=== PATIENT | female | born 1990 | race Two or more races ===

== ENCOUNTER → 2016-09-13 | Outpatient (CLI) | payer OTHER ==
[2016-09-13 11:17] LABS: CH 29.7; CHCM 33.1; HCT 38.7 % (34.0-46.0); HDW 2.75; HGB 12.5 gm/dL (11.4-16.0); MCH 29.1 pg (25.0-35.0); MCHC 32.2 g/dL (31.0-37.0); MCV 90.3 fL (80.0-100.0); Mean Platelet Volume 10.1; RBC 4.29 m/uL (3.80-5.40); RDW 14.2 % (11.5-15.5); WBC 7.7 k/uL (3.8-10.6)
== END | disposition home or self-care (01) ==
LOC: LABWHC1 09:43
PROVIDERS: ATTEND Obstetrics & Gynecology
DX: Z34.02 Encounter for supervision of normal first pregnancy, second trimester (principal); Z3A.00 Weeks of gestation of pregnancy not specified
CPT/HCPCS: 36415; 82950; 85027

== ENCOUNTER 2016-09-18 12:32 | Emergency (ER) | payer OTHER ==
[2016-09-18 13:03] VITALS: TEMP 97.8
[2016-09-18 14:08] LABS: Basophils % (A) 0 %; CH 29.7; CHCM 34.3; Eosinophils # (A) 0.1 k/uL (0-0.7); Eosinophils % (A) 1 %; HCT 36.3 % (34.0-46.0); HDW 2.81; HGB 12.4 gm/dL (11.4-16.0); Luc % (Auto) 1; Lymphocytes # (A) 1.3 k/uL (1.0-4.8); Lymphocytes % (A) 15 %; MCH 29.8 pg (25.0-35.0); MCHC 34.3 g/dL (31.0-37.0); MCV 87.1 fL (80.0-100.0); Mean Platelet Volume 9.1; Monocytes # (A) 0.3 k/uL (0-1.0); Monocytes % (A) 4 %; Neutrophils # (A) 6.4 k/uL (1.3-7.7); Neutrophils % (A) 78 %; RBC 4.16 m/uL (3.80-5.40); RDW 13.8 % (11.5-15.5); WBC 8.2 k/uL (3.8-10.6)
[2016-09-18] MEDS ORDERED: SODIUM CHLORIDE 0.9% 1,000 ML IV ONE (14:08)
--- NOTE | 2016-09-18 14:13 | ED ---
General Adult HPI - General Chief complaint: Headache Stated complaint: Headache,Dizzy Time Seen by Provider: 09/18/16 13:10 Source: patient Mode of arrival: ambulatory Limitations: no limitations - History of Present Illness Initial comments: 26-year-old at Ethiopian female presented for evaluation of headache last night and mild ataxia this morning. She states the headache was gradual in onset and only asked did for a couple hours in the evening yesterday. This morning she woke up and she stated that she had difficulty ambulating in a straight line stating that she would swerve left and right while walking. This lasted for a few minutes and since then she has had no return of the symptoms. She denies any change in her vision, return of the headache, change in hearing, focal weakness, and her significant other denies any change in mental status. She states she is [address] Bal for obstetric care. - Related Data Home Medications Medication Instructions Recorded Confirmed Vit No.78/Iron/FA [Pretab 1 tab PO DAILY 09/18/16 09/18/16 29 mg-1 mg Tablet] Previous Rx's Medication Instructions Recorded Nitrofurantoin Monohyd/M-Cryst 100 mg PO Q12HR #20 cap 09/18/16 [Macrobid] Allergies Allergy/AdvReac Type Severity Reaction Status Date / Time No Known Allergies Allergy Verified 09/18/16 13:55 Review of Systems ROS Statement: Those systems with pertinent positive or pertinent negative responses have been documented in the HPI. General: Patient denies fever, chills,nausea, or vomiting. HEENT: No visual changes. No eye pain. No nasal symptoms. No dysphagia.No odynophagia. No ENT pain. Cardiac: No chest pain. No palpitations. Pulmonary; No dyspnea. Denies cough. GI: No abdominal pain. No diarrhea. No constipation. No bowel habit changes. No melena. No hematochezia. See general. : No dysuria.No hematuria. No hesitancy. No urgency. No renal lithiasis history. Musculoskeletal: No musculoskeletal pain. Orthopedic: Denies fracture history. Integumentary: Denies rash. Denies pruritis. Neurologic: Positive headache last night. Ataxia this morning lasting about 2 minutes. Denies any lateralizing weakness. Denies numbness. Denies tingling. No seizure activity. Denies TIA or CVA. Heme/Onc: Denies anemia. Denies cancer. Denies adenopathy. ROS Other: All systems not noted in ROS Statement are negative. Past Medical History Past Medical History: No Reported History History of Any Multi-Drug Resistant Organisms: None Reported Past Surgical History: No Surgical Hx Reported Past Psychological History: No Psychological Hx Reported Past Alcohol Use History: None Reported Past Drug Use History: None Reported General Exam - General Exam Comments Initial Comments: General: The patient is awake and alert, in no distress, and does not appear acutely ill. Eye: Pupils are equal, round and reactive to light, extra-ocular movements are intact; there is normal conjunctiva bilaterally. No signs of icterus. Ears, nose, mouth and throat: There are moist mucous membranes and no oral lesions. Neck: The neck is supple, there is no tenderness or JVD. Cardiovascular: There is a regular rate and rhythm. No murmur, rub or gallop is appreciated. Respiratory: Lungs are clear to auscultation, respirations are non-labored, breath sounds are equal. No wheezes, stridor, rales, or rhonchi. Gastrointestinal: Soft, non-distended, non-tender abdomen without masses or organomegaly noted. There is no rebound or guarding present. No CVA tenderness. Bowel sounds are unremarkable. Back: There is no tenderness to palpation in the midline. There is no obvious deformity. Musculoskeletal: Normal ROM, no tenderness, There is no calf tenderness or swelling. Sensation intact. Pulses equal bilaterally 2+. Neurological: CN II-XII intact, There are no obvious motor or sensory deficits. Coordination appears grossly intact, with normal gait and station. Speech is normal. Negative Romberg. Skin: Skin is warm and dry. Mild rash to back of neck that appears to be contact dermatitis. Psychiatric: Cooperative, appropriate mood & affect, normal judgment. Limitations: no limitations Course Vital Signs 09/18/16 13:00 Temperature 97.8 F Pulse Rate 67 Respiratory 18 Rate Blood Pressure 112/59 O2 Sat by Pulse 100 Oximetry Medical Decision Making - Medical Decision Making 26-year-old -[place] female at 21 weeks presenting for evaluation of headache last night and ataxia this morning which lasted just a couple minutes. Since then her symptoms have completely resolved. The examination revealed cranial nerves II through XII intact, no focal deficits, normal gait and station, and negative Romberg test. We'll obtain labs and provide IV fluids. Discussion on whether or not to obtain a CT of the head was pursued with the patient and her and to share decision-making it was decided that they would not obtain the CT at this time. They were advised that if her symptoms should return, worsen or persist she should return to the ED for further evaluation at which point she would be strongly recommended to obtain the computed tomography scan. Labs revealed no significant abnormalities and the patient was informed of this. Discussion on signs and symptoms for return to the ED was provided and included but was not limited to: Dizziness/lightheadedness, change in vision, intractable headache, intractable nausea vomiting, ataxia, focal weakness, altered mental status. The patient and her acknowledged an understanding of this information and agreed with this plan of care as well as to follow-up with her primary care physician at sometime this week. - Lab Data Result diagrams: 09/18/16 13:45 09/18/16 13:45 Lab Results 09/18/16 09/18/16 09/18/16 Range/Units 13:45 13:45 13:45 WBC 8.2 (3.8-10.6) k/uL RBC 4.16 (3.80-5.40) m/uL Hgb 12.4 (11.4-16.0) gm/dL Hct 36.3 (34.0-46.0) % MCV 87.1 (80.0-100.0) fL MCH 29.8 (25.0-35.0) pg MCHC 34.3 (31.0-37.0) g/dL RDW 13.8 (11.5-15.5) % Plt Count 165 (150-450) k/uL Neutrophils % 78 % Lymphocytes % 15 % Monocytes % 4 % Eosinophils % 1 % Basophils % 0 % Neutrophils # 6.4 (1.3-7.7) k/uL Lymphocytes # 1.3 (1.0-4.8) k/uL Monocytes # 0.3 (0-1.0) k/uL Eosinophils # 0.1 (0-0.7) k/uL Basophils # 0.0 (0-0.2) k/uL Sodium 138 (137-145) mmol/L Potassium 3.8 (3.5-5.1) mmol/L Chloride 108 H (98-107) mmol/L Carbon Dioxide 20 L (22-30) mmol/L Anion Gap 10 mmol/L BUN 7 (7-17) mg/dL Creatinine 0.40 L (0.52-1.04) mg/dL Est GFR (MDRD) Af Amer >60 (>60 ml/min/1.73 sqM) Est GFR (MDRD) Non-Af >60 (>60 ml/min/1.73 sqM) Glucose 99 (74-99) mg/dL Calcium 9.2 (8.4-10.2) mg/dL Urine Color Yellow Urine Appearance Cloudy H (Clear) Urine pH 5.5 (5.0-8.0) Ur Specific [place] 1.019 (1.001-1.035) Urine Protein Trace H (Negative) Urine Glucose (UA) 2+ H (Negative) Urine Ketones Trace H (Negative) Urine Blood Negative (Negative) Urine Nitrate Negative (Negative) Urine Bilirubin Negative (Negative) Urine Urobilinogen <2.0 (<2.0) mg/dL Ur Leukocyte Esterase Negative (Negative) Urine RBC 2 (0-5) /hpf Urine WBC 1 (0-5) /hpf Ur Squamous Epith Cells 3 (0-4) /hpf Urine Bacteria Rare H (None) /hpf Urine Mucus Occasional H (None) /hpf Disposition Clinical Impression: Ataxia, Asymptomatic bacteriuria Disposition: HOME SELF-CARE Condition: Stable Instructions: Acute Headache (ED) Additional Instructions: Please use medication as discussed. Please follow up with family doctor if symptoms have not improved over the next two days. Please return to the emergency room if your symptoms increase or worsen or for any other concerns. Prescriptions: Nitrofurantoin Monohyd/M-Cryst [Macrobid] 100 mg PO Q12HR #20 cap Time of Disposition: 14:48
[2016-09-18 14:17] LABS: Anion Gap 10 mmol/L; Blood Urea Nitrogen 7 mg/dL (7-17); Calcium 9.2 mg/dL (8.4-10.2); Carbon Dioxide 20 mmol/L (22-30); Chloride 108 mmol/L (98-107); Glucose 99 mg/dL (74-99); Non-African American GFR(MDRD) >60 (>60 ml/min/1.73 sqM); Potassium 3.8 mmol/L (3.5-5.1); Sodium 138 mmol/L (137-145)
[2016-09-18 14:20] LABS: Appearance,Urine Cloudy (Clear); Bacteria,Urine Rare /hpf; Bilirubin,Urine Negative (Negative); Glucose,Urine (UA) 2+ (Negative); Ketones,Urine Trace (Negative); Leukocyte Esterase,Urine Negative (Negative); Mucus,Urine Occasional /hpf; Nitrite,Urine Negative (Negative); PH, Urine 5.5 (5.0-8.0); Particle Count 4924; Protein,Urine Trace (Negative); RBC,Urine 2 /hpf (0-5); Specific Gravity,Urine 1.019 (1.001-1.035); Squamous Epithelial Cell,Urine 3 /hpf (0-4); UA Billing (MACRO vs. MICRO) MICRO; Urobilinogen,Urine <2.0 mg/dL (<2.0); WBC,Urine 1 /hpf (0-5)
[2016-09-18 15:05] VITALS: BP 109/53; PULSE 86; RESP 16
== END 2016-09-18 15:05 | disposition home or self-care (01) ==
LOC: EC 12:32
DX: O99.89 Other specified diseases and conditions complicating pregnancy, childbirth and the puerperium (principal); R82.71 Bacteriuria; R27.0 Ataxia, unspecified; R51 Headache; R42 Dizziness and giddiness; R21 Rash and other nonspecific skin eruption; Z3A.21 21 weeks gestation of pregnancy; Z79.899 Other long term (current) drug therapy
CPT/HCPCS: 36415; 80048; 81001; 85025; 96360; 99284

== ENCOUNTER → 2016-11-28 | Outpatient (CLI) | payer OTHER ==
--- NOTE | 2016-11-28 16:08 | US ---
EXAMINATION TYPE: US OB anatomy transabd DATE OF EXAM: 11/28/2016 2:05 PM COMPARISON: 08/08/2016 HISTORY: Large for dates 3rd Trimester O36.63XO TECHNIQUE: OBTA EXAM MEASUREMENTS: GESTATIONAL AGE / DATING Physician Established: (35 weeks/0 days) EDC: 01/02/2017 Dates by LMP: (34 weeks/3 days) EDC: 01/06/2017 Dates by First Scan: (34 weeks/3 days) EDC: 01/06/2017 Dates by Current Scan for: (33 weeks/5 days) EDC: 01/11/2017 SURVEY IUP: Single PLACENTA: Anterior PREVIA: No previa АЛЕКСАНДР: 13.0 cm Normal CERVICAL LENGTH (transabdominal: norm > 3.0cm): 3.1 cm BIOMETRY PRESENTATION: Vertex LIE: Longitudinal BPD: 8.1 cm 32 weeks / 3 days HC: 30.8 cm 34 weeks / 3 days AC: 32.9 cm 36 weeks / 6 days FL: 6.4 cm 33 weeks / 2 days ESTIMATED WEIGHT IN GRAMS: 2619 grams ESTIMATED WEIGHT IN LBS/OZS: 5 lbs. 12 oz. WEIGHT PERCENTAGE BASED ON ESTABLISHED DATE: 52.8% HC/AC: 0.9 normal FL/AC: 20 normal HEART RATE: 147 bpm RHYTHM: Normal ANATOMY SEEN (within normal limits): Midline Falx Cavus Septi Pellucidi Four Chamber Heart Stomach Situs Diaphragm Kidneys (bilateral) Bladder Three Vessel Cord Longitudinal Spine Transverse Spine ANATOMY NOT SEEN: mature fetus age and crowding Arms (bilateral) Legs (bilateral) Cord Insert Nose / Lips Outflow tracts: LVOT/RVOT * Lateral Vent (< 1 cm) cm * Cisterna Magna (< 1.1 cm) cm * Nuchal Fold (< 0.6 cm) cm * Cerebellum (varies with age) cm Choroid Plexus (bilateral) IMPRESSION: AKHTAR FETUS PRESENT IN A VERTEX LIE WITH A GESTATIONAL AGE OF 33 WEEKS 5 DAYS +/- 3 WEEKS. ESTIMA TITO DATE OF CONFINEMENT BASED ON THIS EXAMINATION IS 01/11/2017. PLEASE NOTE THAT THE MORPHOLOGIC EXAMINATION IS LIMITED.
== END ==
LOC: RADUSWWP 13:21
PROVIDERS: ATTEND Obstetrics & Gynecology
DX: O36.63X0 Maternal care for excessive fetal growth, third trimester, not applicable or unspecified (principal); Z3A.33 33 weeks gestation of pregnancy
CPT/HCPCS: 76811

== ENCOUNTER 2017-01-02 16:33 | Inpatient (IN) | payer OTHER ==
[2017-01-02] MEDS ORDERED: DINOPROSTONE 10 MG INSERT.ER VAGINAL ONE (17:33)
[2017-01-02] MEDS ORDERED: BUTORPHANOL 1 MG/ML 1 ML VIAL IV PRN (17:33)
[2017-01-02 19:23] VITALS: BMI 32.1
[2017-01-03] MEDS ORDERED: LIDOCAINE 1% (PF) 10 MG/ML (30 ML SDV) SQ PRN (05:09)
[2017-01-03] MEDS ORDERED: CARBOPROST TROMETHAMINE 250 MCG/ML 1 ML AMP IM PRN (05:09)
[2017-01-03] MEDS ORDERED: TERBUTALINE 1 MG/ML VIAL SQ PRN (05:09)
[2017-01-03] MEDS ORDERED: OXYTOCIN 10 UNIT/ML 1 ML VIAL IM PRN (05:09)
[2017-01-03] MEDS ORDERED: METHYLERGONOVINE 0.2 MG/ML 1 ML AMP IM PRN (05:09)
[2017-01-03] MEDS: LACTATED RINGERS 1,000 ML IV SCH ×3 (06:08→16:34)
[2017-01-03] MEDS: OXYTOCIN 20 UNITS/1000 ML NS 1,000 ML IV SCH (06:16)
[2017-01-03 06:22] LABS: Basophils % (A) 0 %; CH 28.7; CHCM 33.4; Eosinophils # (A) 0.1 k/uL (0-0.7); Eosinophils % (A) 1 %; HCT 36.2 % (34.0-46.0); HDW 2.99; Luc # (Auto) 0.23; Luc % (Auto) 2; Lymphocytes # (A) 1.4 k/uL (1.0-4.8); Lymphocytes % (A) 14 %; MCH 28.6 pg (25.0-35.0); MCHC 33.1 g/dL (31.0-37.0); MCV 86.4 fL (80.0-100.0); Mean Platelet Volume 10.2; Monocytes # (A) 0.4 k/uL (0-1.0); Monocytes % (A) 4 %; Neutrophils # (A) 7.8 k/uL (1.3-7.7); Neutrophils % (A) 79 %; RBC 4.19 m/uL (3.80-5.40); RDW 14.6 % (11.5-15.5); WBC 9.8 k/uL (3.8-10.6); WBC (Perox) 10.19
--- NOTE | 2017-01-03 12:45 | P.HPOB ---
History of Present Illness H&P Date: 01/02/17 Chief Complaint: induction of labor 26 year old presents at 40 weeks for 2 stage induction of labor. Her cervix is closed/50/-2 and she is not melia. heart tones 130-135 with moderate variability and reactive. Review of Systems All systems: negative Constitutional: Denies chills, Denies fever Eyes: denies blurred vision, denies pain Ears, nose, mouth and throat: Denies headache, Denies sore throat Cardiovascular: Denies chest pain, Denies shortness of breath Respiratory: Denies cough Gastrointestinal: Denies abdominal pain, Denies diarrhea, Denies nausea, Denies vomiting Genitourinary: Denies dysuria, Denies hematuria Musculoskeletal: Denies myalgias Integumentary: Denies pruritus, Denies rash Neurological: Denies numbness, Denies weakness Psychiatric: Denies anxiety, Denies depression Endocrine: Denies fatigue, Denies weight change Past Medical History Past Medical History: No Reported History Additional Past Medical History / Comment(s): Obstetric history: She has had care with ks since 9 weeks gestation. O+, abs neg, Rub Imm, RPR NR, Hep B neg, HIV NR, GBS neg. normal anatomy US. normal 1hr GTT History of Any Multi-Drug Resistant Organisms: None Reported Past Surgical History: No Surgical Hx Reported Past Psychological History: No Psychological Hx Reported Smoking Status: Never smoker Past Alcohol Use History: None Reported Past Drug Use History: None Reported - Past Family History Father Family Medical History: No Reported History Medications and Allergies Home Medications Medication Instructions Recorded Confirmed Type Vit No.78/Iron/FA [Pretab 1 tab PO DAILY 09/18/16 09/18/16 History 29 mg-1 mg Tablet] Allergies Allergy/AdvReac Type Severity Reaction Status Date / Time No Known Allergies Allergy Verified 01/02/17 17:02 Exam Osteopathic Statement: *. No significant issues noted on an osteopathic structural exam other than those noted in the History and Physical/Consult. - Vital Signs Vital signs: Vital Signs Temp Pulse Resp BP Pulse Ox 01/02/17 17:02 97.2 F L 78 18 131/69 99 Intake and Output 01/02/17 01/03/17 01/03/17 22:59 06:59 14:59 Other: # Voids 2 1 Weight 82.1 kg HEart: RRR Lungs: CTAB ABdomen: soft, nontender Extremeties: neg wilder's Results Result Diagrams: 01/03/17 06:10 Abnormal Lab Results - Last 24 Hours (Table) 01/03/17 Range/Units 06:10 Neutrophils # 7.8 H (1.3-7.7) k/uL Assessment and Plan (1) Normal labor Status: Acute Plan: 1. cervidil induction of labor with pitocin in the morning.
[2017-01-03] MEDS ORDERED: BUPIVACAINE (PF) 0.25% 30 ML VIAL ONE ×2 (14:34→18:44)
[2017-01-03] MEDS ORDERED: fentaNYL (PF) 50 MCG/ML 5 ML AMP ONE ×2 (14:34→18:44)
[2017-01-03] MEDS ORDERED: SODIUM CHLORIDE 0.9% 100 ML BAG ONE ×2 (14:34→18:44)
[2017-01-03] MEDS ORDERED: CITRIC ACID-SODIUM CITRATE 15 ML CUP PO ONE (18:19)
[2017-01-03] MEDS ORDERED: ceFAZolin 2 GM in SODIUM CHLORIDE 0.9% 100 ML IVPB ONE (18:20)
[2017-01-03] MEDS ORDERED: OXYTOCIN 10 UNIT/ML 1 ML VIAL ONE (18:44)
[2017-01-03] MEDS ORDERED: ONDANSETRON 4 MG/2 ML VIAL ONE (18:44)
[2017-01-03] MEDS ORDERED: KETOROLAC 30 MG/ML 1 ML VIAL ONE (18:44)
[2017-01-03] MEDS ORDERED: NALOXONE 0.4 MG/ML 1 ML VIAL IV PRN (19:17)
[2017-01-03] MEDS ORDERED: ACETAMINOPHEN TAB 325 MG TAB PO PRN (19:17)
[2017-01-03] MEDS ORDERED: HYDROmorphone PCA 5 MG/25 ML SYRINGE IV PRN (19:17)
[2017-01-03] MEDS ORDERED: diphenhydrAMINE 25 MG CAP PO PRN (19:17)
[2017-01-03] MEDS ORDERED: diphenhydrAMINE 50 MG CAP PO PRN (19:17)
[2017-01-03] MEDS ORDERED: diphenhydrAMINE 50 MG/ML 1 ML VIAL IVP PRN ×2 (19:17)
[2017-01-03] MEDS ORDERED: METOCLOPRAMIDE 5 MG/ML 2 ML VIAL IVP PRN (19:17)
[2017-01-03] MEDS ORDERED: ZOLPIDEM 5 MG TAB PO PRN (19:17)
[2017-01-03] MEDS ORDERED: ONDANSETRON 4 MG/2 ML VIAL IVP PRN (19:17)
[2017-01-04] MEDS: LACTATED RINGERS 1,000 ML IV SCH ×5 (03:50→13:29)
[2017-01-04] MEDS: SENNOSIDES-DOCUSATE SODIUM 1 EACH TAB PO SCH ×3 (03:51→19:39)
[2017-01-04] MEDS: KETOROLAC 30 MG/ML 1 ML VIAL IVP SCH ×2 (03:57→14:10)
--- NOTE | 2017-01-04 08:11 | P.OP ---
Date of Procedure: 01/03/17 Preoperative Diagnosis: 1. at 40 weeks 1 day 2. failure to progress Postoperative Diagnosis: 1. at 40 weeks 1 day 2. failure to progress Procedure(s) Performed: Primary low transverse Anesthesia: spinal Batch Freezer Operator #1: Ledy Bal Batch Freezer Operator #2: Vineet Underwood Estimated Blood Loss (ml): 600 IV fluids (ml): 600 Urine output (ml): 200 Pathology: other (Placenta) Condition: stable Disposition: floor Indications for Procedure: 26-year-old presented at 40 weeks for induction of labor. Her cervix was closed, 50% effaced, -2 station. heart tones are 130-135 with moderate variability and reactive. Cervidil was placed and then removed in the morning. Her cervix was 1 cm dilated, 60% effaced, -2 station. Amniotomy was performed , clear fluid noted. Pitocin was also started. She did progress to 2 cm and had an epidural. She did not pass 2 cm despite adequate contractions for several hours. Informed consent was obtained and section was called. Operative Findings: Viable male, Apgars 9, 9, weight 7 lbs. 5 oz. Description of Procedure: Patient was taken to the operating room where spinal anesthesia was found be adequate. She was prepped and draped in normal sterile fashion in dorsal supine position with a leftward tilt. Pfannenstiel skin incision was made the scalpel and carried through to the underlying layer of fascia with the scalpel. Fascia was incised in midline and carried bilaterally with the Hayes scissors. The superior aspect of the fascial incision was grasped with Christal clamps elevated and the underlying rectus muscles dissected off with the Hayes's. Attention was then turned to inferior aspect of same incision which in a similar fashion was grasped tented up and the underlying rectus muscles dissected off with the Hayes's. The rectus muscles were the midline and the peritoneum was identified tented up and entered sharply with the scalpel. The incision was extended superiorly and inferiorly with good visualization of the bladder. The bladder blade was inserted and the vesicouterine peritoneum was incised the Metzenbaums then carried bilaterally and bladder flap created digitally. A low transverse incision was then made on the uterus with the scalpel. This was carried bilaterally and digital manner. 's head delivered atraumatically, nose and mouth bulb suctioned, cord clamped and cut, infant handed off to waiting nurses. Apgars 9,9, weight 7 lbs. 5 oz. Placenta delivered manually, intact with three-vessel cord. The uterus is exteriorized and cleared of all clots and debris. The uterine incision was closed with 0 Vicryl in a running locked fashion. Second layer of the same sutures used in imbricating fashion to obtain excellent hemostasis. Bladder flap was then reapproximated using 2-0 Vicryl in a running fashion. Both ovaries and tubes appeared normal. The uterus was placed back into the abdomen. The peritoneum was reapproximated using 2-0 Vicryl in a running fashion. The muscles were reapproximated using 2-0 Vicryl in interrupted fashion. The fascia was reapproximated using 0 Vicryl in a running fashion. The subcutaneous tissues closed with 3-0 Vicryl running fashion. The skin was closed dom. Patient tolerated the procedure well, sponge and instrument counts were correct times 2 and she was taken to the recovery room in stable condition.
--- NOTE | 2017-01-04 08:13 | P.PNOBGPC ---
Subjective - Subjective Principal diagnosis: Status post primary low transverse . POD #1 Interval history: Patient seen and examined. Denies nausea, vomiting, chest pain, shortness of breath or calf pain. Tolerating clear liquid diet and passing flatus. Patient reports: Reports appetite normal, Reports voiding normally, Reports pain well controlled, Reports ambulating normally : doing well Objective - Vital Signs Latest vital signs: Vital Signs Temp Pulse Resp BP Pulse Ox 01/04/17 04:00 98.5 F 80 16 116/78 98 01/04/17 00:00 98.6 F 85 16 114/75 97 01/03/17 21:23 98.9 F 94 16 113/59 99 01/03/17 20:53 85 16 119/59 01/03/17 20:23 98.4 F 96 16 112/56 01/03/17 20:08 93 16 120/63 97 01/03/17 19:53 99 16 117/66 98 01/03/17 19:38 96 16 130/73 01/03/17 19:23 98.8 F 92 16 135/58 98 Intake and Output 01/03/17 01/04/17 01/04/17 22:59 06:59 14:59 Intake Total 1000 Output Total 900 850 Balance -900 150 Intake: Intake, IV Titration 1000 Amount Lactated Ringers 1,000 ml 1000 @ 125 mls/hr IV .Q8H COUNTS INCLUDE 234 BEDS AT THE [facility] Rx#:[id number] Output: Urine 900 350 Uretheral (Spencer) 500 350 Estimated Blood Loss 500 Other: Voiding Method Indwelling Catheter # Voids 0 - Exam Lungs: bilateral: normal Chest: Normal S1, Normal S2 Extremities: Present: normal Abdomen: Present: normal appearance, soft. Absent: distention, tenderness Incision: Present: normal, dry, intact Uterus: Present: normal, firm Assessment and Plan (1) Normal labor Current Visit: Yes Status: Resolved Code(s): O80 - ENCOUNTER FOR FULL-TERM UNCOMPLICATED DELIVERY; Z37.9 - OUTCOME OF DELIVERY, UNSPECIFIED SNOMED Code(s ): 77337464 (2) Status post primary low transverse section Narrative/Plan: 1. Increase ambulation 2. Regular diet 3. DC REFRIGERATION SYSTEMS INSTALLER and by mouth pain medication Current Visit: Yes Status: Acute Code(s): Z98.891 - HISTORY OF UTERINE SCAR FROM PREVIOUS SURGERY SNOMED Code(s): 526056749
[2017-01-04 08:53] LABS: Basophils % (A) 0 %; CH 29.2; CHCM 34.1; Eosinophils # (A) 0.1 k/uL (0-0.7); Eosinophils % (A) 1 %; HCT 28.5 % (34.0-46.0); HDW 3.07; Luc # (Auto) 0.15; Luc % (Auto) 2; Lymphocytes % (A) 12 %; MCH 29.2 pg (25.0-35.0); MCHC 33.8 g/dL (31.0-37.0); MCV 86.3 fL (80.0-100.0); Mean Platelet Volume 10.2; Monocytes # (A) 0.4 k/uL (0-1.0); Monocytes % (A) 5 %; Neutrophils # (A) 6.3 k/uL (1.3-7.7); Neutrophils % (A) 80 %; RDW 14.6 % (11.5-15.5); WBC 7.9 k/uL (3.8-10.6); WBC (Perox) 8.33
[2017-01-04 09:01] LABS: HGB 9.6 gm/dL (11.4-16.0)
[2017-01-04] MEDS: Acetaminophen-Codeine 300-30mg TAB PO PRN ×3 (10:21→22:04)
[2017-01-04] MEDS: IBUPROFEN 600 MG TAB PO PRN ×2 (13:28→19:39)
[2017-01-04] MEDS: OXYTOCIN 20 UNITS/1000 ML NS 1,000 ML IV SCH (14:11)
[2017-01-05] MEDS: Acetaminophen-Codeine 300-30mg TAB PO PRN ×3 (07:43→21:01)
[2017-01-05] MEDS: SENNOSIDES-DOCUSATE SODIUM 1 EACH TAB PO SCH ×2 (07:44→19:19)
--- NOTE | 2017-01-05 09:43 | P.PNOBGPC ---
Subjective - Subjective Principal diagnosis: Status post primary low-transverse section postop day #2 Interval history: Examined. Denies nausea, vomiting, chest pain, shortness of breath or calf pain. Tolerating regular diet and passing flatus. Patient reports: Reports appetite normal, Reports voiding normally, Reports pain well controlled, Reports ambulating normally : doing well Objective - Vital Signs Latest vital signs: Vital Signs Temp Pulse Resp BP 01/05/17 08:00 98.6 F 86 18 117/69 01/05/17 00:00 97.5 F L 68 16 105/53 01/04/17 20:00 98.0 F 80 16 108/76 01/04/17 15:56 97.9 F 96 16 107/57 Intake and Output 01/04/17 01/05/17 01/05/17 22:59 06:59 14:59 Intake Total 200 Balance 200 Intake: Oral 200 Other: # Voids 1 2 1 # Bowel Movements 0 - Exam Lungs: bilateral: normal Chest: Normal S1, Normal S2 Extremities: Present: normal Abdomen: Present: normal appearance, soft. Absent: distention, tenderness Incision: Present: normal, dry, intact Uterus: Present: normal, firm Assessment and Plan (1) Normal labor Current Visit: Yes Status: Resolved Code(s): O80 - ENCOUNTER FOR FULL-TERM UNCOMPLICATED DELIVERY; Z37.9 - OUTCOME OF DELIVERY, UNSPECIFIED SNOMED Code(s ): 21720143 (2) Status post primary low transverse section Narrative/Plan: 1. Continue with pain control 2. Increase ambulation Current Visit: Yes Status: Acute Code(s): Z98.891 - HISTORY OF UTERINE SCAR FROM PREVIOUS SURGERY SNOMED Code(s): 985678382
[2017-01-05] MEDS: IBUPROFEN 600 MG TAB PO PRN ×2 (10:51→19:19)
[2017-01-06 00:27] VITALS: RESP 16
--- NOTE | 2017-01-06 07:26 | P.DS ---
Providers Date of admission: 01/02/17 16:33 Expected date of discharge: 01/06/17 Attending physician: Ledy Bal Primary care physician: Gregory Parish - Discharge Diagnosis(es) (1) Normal labor Current Visit: Yes Status: Resolved (2) Status post primary low transverse section Current Visit: Yes Status: Acute Hospital Course: Patient presented for induction of labor. She underwent a primary low transverse for failure to progress. Her post op course was uncomplicated. Her pain is well controlled. She is tolerating a regular diet and passing flatus. Ambulating and voiding without difficulty. She will be discharged home POD #3 in stable condition to follow up with me in 1 week. Plan - Discharge Summary New Discharge Prescriptions: Acetaminophen-Codeine 300-30mg [Tylenol #3] 2 tab PO Q6H PRN #30 tablet PRN Reason: Pain Ibuprofen [Motrin] 600 mg PO Q6HR PRN #30 tab PRN Reason: Mild Pain Or Fever >= 100.5 Discharge Medication List Vit No.78/Iron/FA [Pretab 29 mg-1 mg Tablet] 1 tab PO DAILY 09/18/16 [ History] Acetaminophen-Codeine 300-30mg [Tylenol #3] 2 tab PO Q6H PRN #30 tablet [Rx] Ibuprofen [Motrin] 600 mg PO Q6HR PRN #30 tab 01/06/17 [Rx] Follow up Appointment(s)/Referral(s): Ledy Bal DO [Doctor of Osteopathic Medicine] - 1 Week Discharge Disposition: HOME SELF-CARE
[2017-01-06 08:56] VITALS: BP 115/62; PULSE 85; TEMP 98.8
[2017-01-06] MEDS: SENNOSIDES-DOCUSATE SODIUM 1 EACH TAB PO SCH (08:57)
[2017-01-06] MEDS: Acetaminophen-Codeine 300-30mg TAB PO PRN (08:58)
[2017-01-06] MEDS: IBUPROFEN 600 MG TAB PO PRN (14:31)
== END 2017-01-06 17:00 | disposition home or self-care (01) | DRG 766 ==
LOC: 4FBP 16:33
PROVIDERS: ADMIT Obstetrics & Gynecology; ATTEND Obstetrics & Gynecology
PROC: 10907ZC Drainage of Amniotic Fluid, Therapeutic from Products of Conception, Via Natural or Artificial Opening (ICD-10-PCS; principal; 2017-01-02)
PROC: 3E0P7GC Introduction of Other Therapeutic Substance into Female Reproductive, Via Natural or Artificial Opening (ICD-10-PCS; principal; 2017-01-02)
PROC: 3E0R3CZ (ICD-10-PCS; principal; 2017-01-02)
PROC: 00HU33Z Insertion of Infusion Device into Spinal Canal, Percutaneous Approach (ICD-10-PCS; principal; 2017-01-02)
PROC: 3E033VJ Introduction of Other Hormone into Peripheral Vein, Percutaneous Approach (ICD-10-PCS; principal; 2017-01-02)
PROC: 10D00Z1 Extraction of Products of Conception, Low, Open Approach (ICD-10-PCS; 2017-01-04)
DX: O62.0 Primary inadequate contractions (principal); O62.2 Other uterine inertia; Z37.0 Single live birth; Z3A.40 40 weeks gestation of pregnancy
CPT/HCPCS: 85025; 88307

== ENCOUNTER 2017-01-09 04:11 | Emergency (ER) | payer OTHER ==
[2017-01-09] MEDS ORDERED: DOCUSATE 283 MG/5 ML ENEMA RECTAL STA ×2 (05:00→05:47)
--- NOTE | 2017-01-09 05:03 | ED ---
General Adult HPI - General Chief complaint: Abdominal Pain Stated complaint: Constipation Time Seen by Provider: 01/09/17 04:43 Source: patient, family, RN notes reviewed Mode of arrival: ambulatory Limitations: no limitations - History of Present Illness Initial comments: patient is a pleasant 26-year-old female presenting to the emergency department for constipation. Patient did have a done on the ninth. Patient has not had a bowel movement since that time. Patient does complain of abdominal fullness. Symptoms have progressed over the past several days. Patient is passing gas. Patient is having only mild vaginal discharge and bleeding. No dysuria or urinary problems. No fevers. No vomiting. - Related Data Home Medications Medication Instructions Recorded Confirmed Vit No.78/Iron/FA [Pretab 1 tab PO DAILY 09/18/16 01/09/17 29 mg-1 mg Tablet] Previous Rx's Medication Instructions Recorded Ibuprofen [Motrin] 600 mg PO Q6HR PRN #30 tab 01/06/17 Allergies Allergy/AdvReac Type Severity Reaction Status Date / Time No Known Allergies Allergy Verified 01/09/17 04:21 Review of Systems ROS Statement: Those systems with pertinent positive or pertinent negative responses have been documented in the HPI. ROS Other: All systems not noted in ROS Statement are negative. Constitutional: Denies: fever Eyes: Denies: eye pain ENT: Denies: ear pain Respiratory: Denies: cough Cardiovascular: Denies: chest pain Endocrine: Denies: fatigue Gastrointestinal: Reports: abdominal pain, constipation. Denies: nausea, vomiting Genitourinary: Denies: dysuria Musculoskeletal: Denies: back pain Skin: Denies: rash Neurological: Denies: weakness Past Medical History Past Medical History: No Reported History Additional Past Medical History / Comment(s): Obstetric history: She has had care with or since 9 weeks gestation. O+, abs neg, Rub Imm, RPR NR, Hep B neg, HIV NR, GBS neg. normal anatomy US. normal 1hr GTT History of Any Multi-Drug Resistant Organisms: None Reported Past Surgical History: No Surgical Hx Reported Past Psychological History: No Psychological Hx Reported Smoking Status: Never smoker Past Alcohol Use History: None Reported Past Drug Use History: None Reported - Past Family History Father Family Medical History: No Reported History General Exam Limitations: no limitations General appearance: alert, in no apparent distress Head exam: Present: atraumatic Eye exam: Present: normal appearance, PERRL ENT exam: Present: normal oropharynx Neck exam: Present: normal inspection Respiratory exam: Present: normal lung sounds bilaterally Cardiovascular Exam: Present: regular rate, normal rhythm GI/Abdominal exam: Present: soft, tenderness (mild lower abdominal tenderness), normal bowel sounds. Absent: distended, guarding, rebound, rigid, pulsatile mass Rectal exam: Present: other (soft brown stool is present in the exam. RN Isabella is present) Extremities exam: Present: normal inspection Neurological exam: Present: alert Psychiatric exam: Present: normal affect, normal mood Skin exam: Present: other (lower abdominal incision is clean and dry and intact) Course Vital Signs 01/09/17 01/09/17 04:17 07:08 Temperature 98.1 F Pulse Rate 61 64 Respiratory 16 16 Rate Blood Pressure 116/61 121/59 O2 Sat by Pulse 100 97 Oximetry Medical Decision Making - Medical Decision Making patient reexamined and improved. Patient still feels somewhat constipated and is receptive to repeat enema prior to discharge. Abdomen is soft and nontender. Patient does have an appointment with her [facility] today and will keep her appointment.patient did have moderate bowel movement earlier following enema. - Lab Data Result diagrams: 01/09/17 05:33 01/09/17 05:33 Lab Results 01/09/17 01/09/17 01/09/17 Range/Units 05:33 05:33 05:33 WBC 8.4 (3.8-10.6) k/uL RBC 3.69 L (3.80-5.40) m/uL Hgb 10.7 L (11.4-16.0) gm/dL Hct 32.4 L (34.0-46.0) % MCV 87.7 (80.0-100.0) fL MCH 29.0 (25.0-35.0) pg MCHC 33.0 (31.0-37.0) g/dL RDW 14.4 (11.5-15.5) % Plt Count 244 (150-450) k/uL Neutrophils % 76 % Lymphocytes % 15 % Monocytes % 5 % Eosinophils % 3 % Basophils % 0 % Neutrophils # 6.3 (1.3-7.7) k/uL Lymphocytes # 1.3 (1.0-4.8) k/uL Monocytes # 0.4 (0-1.0) k/uL Eosinophils # 0.2 (0-0.7) k/uL Basophils # 0.0 (0-0.2) k/uL PT 10.0 (9.0-12.0) sec INR 1.0 (<1.1) APTT 22.3 (22.0-30.0) sec Sodium 142 (137-145) mmol/L Potassium 4.3 (3.5-5.1) mmol/L Chloride 109 H (98-107) mmol/L Carbon Dioxide 24 (22-30) mmol/L Anion Gap 9 mmol/L BUN 14 (7-17) mg/dL Creatinine 0.60 (0.52-1.04) mg/dL Est GFR (MDRD) Af Amer >60 (>60 ml/min/1.73 sqM) Est GFR (MDRD) Non-Af >60 (>60 ml/min/1.73 sqM) Glucose 81 (74-99) mg/dL Calcium 9.6 (8.4-10.2) mg/dL Total Bilirubin 0.4 (0.2-1.3) mg/dL AST 25 (14-36) U/L ALT 36 (9-52) U/L Alkaline Phosphatase 108 (38-126) U/L Total Protein 6.3 (6.3-8.2) g/dL Albumin 3.3 L (3.5-5.0) g/dL Amylase 76 (30-110) U/L Lipase 31 (23-300) U/L - Radiology Data Radiology results: report reviewed (Computed tomography scan of the abdomen and pelvis shows enlargement of the uterus with focal are likely related to recent C -section. Postsurgical changes. Monitor large retained stool in the rectum. Mildly distended sigmoid colon, likely ileus.), image reviewed (x-ray shows dilated loop of bowel. Cannot rule out ileus versus small bowel obstruction.) Disposition Clinical Impression: Constipation, Abdominal pain Disposition: HOME SELF-CARE Condition: Stable Instructions: Abdominal Pain (ED), Constipation (ED), High Fiber Diet (ED) Additional Instructions: please follow-up with your [facility] today as scheduled. Please also follow-up with her primary care physician in the next day or 2 for recheck. Please have repeat x-ray done in the next couple of days. [id number] prune juice. Return for vomiting, fever, increased pain, worsening symptoms or other concerns. Referrals: Gregory Parish DO [Primary Care Provider] - 1-2 days Time of Disposition: 07:14
--- NOTE | 2017-01-09 05:18 | XR ---
EXAM: XR Abdomen Complete, 2 or More Views CLINICAL HISTORY: Reason: Pain TECHNIQUE: Frontal view of the abdomen/pelvis with upright view of the abdomen. COMPARISON: No relevant prior studies available. FINDINGS: Intraperitoneal space: No free air is seen. Gastrointestinal tract: There is at least one dilated bowel loop in the left upper quadrant, which appears to be separate from stool-filled transverse colon and splenic flexure as well as slightly air-filled stomach, suggesting it is either a redundant sigmoid colonic loop or dilated small bowel loop, and measuring 5-7 cm. There are air-fluid levels within this on the upright view. Mild to moderate amount of colonic stool throughout, to the level the rectum. Bones/joints: Unremarkable. IMPRESSION: 1. Dilated bowel loop or loops in the left upper to mid abdomen, that may be redundant sigmoid colon or one or more dilated small bowel loops, the latter of which would raise the possibility of postoperative small bowel ileus versus small bowel obstruction. Further assessment in the form of CT could be considered. 2. No free air is identified.
[2017-01-09] MEDS ORDERED: RX INFO: IV CONTRAST WAS GIVEN 1 EACH MISC MISCELLANE PRN (05:19)
[2017-01-09] MEDS ORDERED: SODIUM CHLORIDE 0.9% 500 ML IV STA (05:19)
[2017-01-09 05:39] LABS: Basophils % (A) 0 %; CH 28.8; Eosinophils # (A) 0.2 k/uL (0-0.7); Eosinophils % (A) 3 %; HCT 32.4 % (34.0-46.0); HDW 2.94; HGB 10.7 gm/dL (11.4-16.0); Luc # (Auto) 0.19; Luc % (Auto) 2; Lymphocytes # (A) 1.3 k/uL (1.0-4.8); Lymphocytes % (A) 15 %; MCV 87.7 fL (80.0-100.0); Mean Platelet Volume 9.5; Monocytes # (A) 0.4 k/uL (0-1.0); Monocytes % (A) 5 %; Neutrophils # (A) 6.3 k/uL (1.3-7.7); Neutrophils % (A) 76 %; RBC 3.69 m/uL (3.80-5.40); RDW 14.4 % (11.5-15.5); WBC 8.4 k/uL (3.8-10.6); WBC (Perox) 8.39
[2017-01-09] MEDS ORDERED: MORPHINE SULFATE 4 MG/ML SYRINGE IVP STA (05:46)
[2017-01-09 05:48] LABS: Partial Thromboplastin Time 22.3 sec (22.0-30.0)
[2017-01-09 05:49] LABS: ALT 36 U/L (9-52); AST 25 U/L (14-36); Alkaline Phosphatase 108 U/L (38-126); Amylase 76 U/L (30-110); Anion Gap 9 mmol/L; Blood Urea Nitrogen 14 mg/dL (7-17); Calcium 9.6 mg/dL (8.4-10.2); Carbon Dioxide 24 mmol/L (22-30); Chloride 109 mmol/L (98-107); Glucose 81 mg/dL (74-99); Non-African American GFR(MDRD) >60 (>60 ml/min/1.73 sqM); Potassium 4.3 mmol/L (3.5-5.1); Sodium 142 mmol/L (137-145); Total Bilirubin 0.4 mg/dL (0.2-1.3); Total Protein 6.3 g/dL (6.3-8.2)
--- NOTE | 2017-01-09 07:03 | CT ---
EXAM: CT Abdomen and Pelvis With Intravenous Contrast CLINICAL HISTORY: Reason: abdominal pain TECHNIQUE: Axial computed tomography images of the abdomen and pelvis with intravenous contrast. CTDI is 22.1 mGy and DLP is 810.3 mGy-cm This CT exam was performed using one or more of the following dose reduction techniques: automated exposure control, adjustment of the mA and/or kV according to patient size, and/or use of iterative reconstruction technique. COMPARISON: None FINDINGS: Lower thorax: Small hiatal hernia. ABDOMEN: Liver: Unremarkable. No mass. Gallbladder and bile ducts: Unremarkable. No calcified stones. No ductal dilation. Pancreas: Unremarkable. No mass. No ductal dilation. Spleen: Unremarkable. No splenomegaly. Adrenals: Unremarkable. No mass. Kidneys and ureters: Unremarkable. No solid mass. No hydronephrosis. Stomach and bowel: Thickening of the stomach wall likely reflect underdistention. No focal small bowel dilatation.Moderate to large retained stool in the rectum. Nonspecific perirectal soft tissue stranding. Redundant sigmoid colon. There is focal distention of the sigmoid colon in the left upper abdomen. There is slight gradual change in caliber in the descending colon. This is nonspecific and may represent focal ileus. Appendix: No findings to suggest acute appendicitis. PELVIS: Bladder: Bladder is decompressed. Reproductive: Uterus is enlarged and slightly heterogeneous. This is nonspecific. This may reflect uterus. Tiny foci of air at towards the left lateral endometrial cavity may reflect post change. Follow-up recommended as indicated. ABDOMEN and PELVIS: Intraperitoneal space: No significant free fluid. No free air. Bones/joints: No acute fracture. No dislocation. Soft tissues: Soft tissue stranding in the lower anterior pelvis likely postsurgical change and scarring related to recent . There are tiny foci of air in the anterior pelvic wall. Vasculature: Unremarkable. No abdominal aortic aneurysm. Lymph nodes: Unremarkable. No enlarged lymph nodes. IMPRESSION: 1. Heterogeneous enlarged uterus with small foci of air in the endometrial cavity, likely related to recent . 2. Findings the anterior pelvic wall with scattered areas of air likely postsurgical change. 3. Nonspecific bowel gas pattern with moderate to large retained stool in the rectum. 4. Redundant mildly distended sigmoid colon, probable ileus. Follow-up serial abdominal radiographs recommended to assess for any change. 5. No free air or free fluid.
[2017-01-09] MEDS ORDERED: NA PHOS,M-B/NA PHOS,DI-BA 133 ML ENEMA RECTAL STA (07:16)
[2017-01-09 08:26] VITALS: BP 118/68; PULSE 77; RESP 18; TEMP 96.9
== END 2017-01-09 08:25 | disposition home or self-care (01) ==
LOC: EC 04:11
DX: K59.00 Constipation, unspecified (principal); R10.30 Lower abdominal pain, unspecified; Z79.899 Other long term (current) drug therapy
CPT/HCPCS: 36415; 80053; 82150; 83690; 85025; 85610; 85730; 74020; 74177; 99284; 96374; 96361; J2270; Q9967

== ENCOUNTER → 2018-04-13 | Outpatient (CLI) | payer OTHER ==
--- NOTE | 2018-04-13 17:47 | US ---
EXAMINATION TYPE: Transabdominal DATE OF EXAM: 11/28/17 COMPARISON: NONE CLINICAL HISTORY: Pelvic pain R10.2. Pelvic pain x 1 day, spotting 1 week ago EXAM PERFORMED: Transabdominal (TA) EXAM MEASUREMENTS: GESTATIONAL AGE / DATING Physician Established: Not established yet Dates by LMP: (10 weeks/0 days) EDC: 11/09/2018 Dates by First Scan: This is 1st scan Dates by Current Scan for: ( 9 weeks/6 days) EDC: 11/10/2018 MATERNAL ANATOMY Uterus: 9.6 x 6.6 x 8.0cm Right Ovary: 3.0 x 1.3 x 1.5cm Left Ovary: 3.3 x 2.0 x 2.7cm Post CDS / Adnexa: wnl Presence of free fluid: no Presence of corpus luteal cyst: left ovary: 1.7 x 1.3 x 1.5cm hypoechoic area with peripheral vascula rity, probable corpus luteum Presence of subchorionic bleed: no GESTATION / SURVEY CRL: 3.0cm (9 weeks/6 days) Yolk Sac (normal less than 6mm): 4.2mm Heart Rate: 161 bpm Rhythm: Normal IUP: Viable IUP Date of LMP: 02/02/2018 Viable single IUP measuring 9 weeks 6 days with a heart rate 161bpm and an estimated delivery date of 11/10/2018. IMPRESSION: No complicating process seen.
== END | disposition home or self-care (01) ==
LOC: RADUSMAIN 16:48
PROVIDERS: ATTEND Family Medicine
DX: R10.2 Pelvic and perineal pain (principal)
CPT/HCPCS: 76801

== ENCOUNTER → 2018-04-24 | Outpatient (CLI) | payer OTHER ==
--- NOTE | 2018-04-24 12:17 | ECHOF ---
Referral Reason:R01.1 Cardiac Murmur MEASUREMENTS -------- HEIGHT: 162.6 cm WEIGHT: 63.5 kg BP: RVIDd: 2.6 cm (< 3.3) IVSd: 0.7 cm (0.6 - 1.1) LVIDd: 4.6 cm (3.9 - 5.3) LVPWd: 1.0 cm (0.6 - 1.1) IVSs: 1.0 cm LVIDs: 3.7 cm LVPWs: 1.1 cm LA Diam: 2.9 cm (2.7 - 3.8) Ao Diam: 2.5 cm (2.0 - 3.7) AV Cusp: 1.4 cm (1.5 - 2.6) LA Diam: 3.3 cm (2.7 - 3.8) MV EXCURSION: 16.399 mm (> 18.000) MV EF SLOPE: 93 mm/s (70 - 150) EPSS: 0.8 cm MV E Luther: 0.76 m/s MV DecT: 292 ms MV A Luther: 0.46 m/s MV E/A Ratio: 1.66 RAP: 5.00 mmHg RVSP: 24.03 mmHg FINDINGS -------- Sinus rhythm. This was a technically good study. LV size, wall thickness and systolic function are normal, with an EF greater than 55%. The left aditya tricular size is normal. The right ventricle is normal in size. The left atrial size is normal. The right atrial size is normal. The aortic valve is trileaflet, and appears structurally normal. No aortic stenosis or regurgitation. Normal appearing mitral valve. No mitral regurgitation. Mild tricuspid regurgitation present. There is no evidence of pulmonary hypertension. The right v entricular systolic pressure, as measured by Doppler, is 24.03mmHg. Moderate pulmonic regurgitation. The aortic root size is normal. There is no pericardial effusion. CONCLUSIONS -------- 1. Sinus rhythm. 2. LV size, wall thickness and systolic function are normal, with an EF greater than 55%. 3. The left ventricular size is normal. 4. The left atrial size is normal. 5. The right atrial size is normal. 6. The aortic valve is trileaflet, and appears structurally normal. No aortic stenosis or regurgitati on. 7. Normal appearing mitral valve. 8. Mild tricuspid regurgitation present. 9. There is no evidence of pulmonary hypertension. 10. Moderate pulmonic regurgitation. 11. The aortic root size is normal. 12. There is no pericardial effusion. HAM SAWYER: Tanesha Shane RDCS
== END | disposition home or self-care (01) ==
LOC: RADECHMAIN 10:41
PROVIDERS: ATTEND Family Medicine
DX: I07.1 Rheumatic tricuspid insufficiency (principal); I37.1 Nonrheumatic pulmonary valve insufficiency
CPT/HCPCS: 93306

== ENCOUNTER → 2018-06-12 | Outpatient (CLI) | payer OTHER ==
--- NOTE | 2018-06-12 13:47 | US ---
EXAMINATION TYPE: US OB anatomy transabd DATE OF EXAM: 06/12/2018 COMPARISON: NONE HISTORY: O36.62X0 large for dates TECHNIQUE: Transabdominal (TA) EXAM MEASUREMENTS: GESTATIONAL AGE / DATING Physician Established: (18 weeks/0 days) EDC: 11/13/18 Dates by LMP: (18 weeks/4 days) EDC: 11/09/18 Dates by First Scan: (18 weeks/ 3 days) EDC: 11/10/18 Dates by Current Scan for: (18 weeks/ 4 days) EDC: 11/09/18 SURVEY IUP: Single PLACENTA: Anterior PREVIA: No previa АЛЕКСАНДР: 13.9 cm CERVICAL LENGTH (transabdominal: norm > 3.0cm): 3.7 cm BIOMETRY PRESENTATION: Breech BPD: 4.3 cm 18 weeks / 6 days HC: 15.8 cm 18 weeks / 5 days AC: 13.2 cm 18 weeks / 8 days FL: 2.8 cm 18 weeks / 3 days ESTIMATED WEIGHT IN GRAMS: 248 grams ESTIMATED WEIGHT IN LBS/OZ: 9 oz. WEIGHT PERCENTAGE BASED ON ESTABLISHED DATE: 81% HC/AC: 1.2 FL/AC: 20.9 HEART RATE: 136 bpm RHYTHM: Normal ANATOMY SEEN (within normal limits): * Lateral Vent (< 1 cm) 0.7 cm * Cisterna Magna (< 1.1 cm) 0.4 cm * Nuchal Fold (< 0.6 cm) 0.3 cm * Cerebellum (varies with age) 1.6 cm Midline Falx Cavus Septi Pellucidi Four Chamber Heart Outflow tracts: LVOT/RVOT Stomach Situs Nose / Lips Diaphragm Kidneys (bilateral) Bladder Cord Insert Three Vessel Cord Longitudinal Spine Transverse Spine Arms (bilateral) Legs (bilateral) ANATOMY SEEN (does not appear within normal limits): Choroid Plexus (bilateral) bilateral cysts noted measuring 0.5cm and 0.4cm IMPRESSION: 1. Bilateral choroid plexus cysts are seen the largest measuring 5 mm, typically a benign finding. 2. Single live intrauterine with a calculated sonographic age of 18 weeks and 4 days, conco rdant with menstrual age. Weight percentage dates is 81%.
== END ==
LOC: RADUSWWP 09:43
PROVIDERS: ATTEND Obstetrics & Gynecology
DX: O36.62X0 Maternal care for excessive fetal growth, second trimester, not applicable or unspecified (principal); Z3A.18 18 weeks gestation of pregnancy
CPT/HCPCS: 76811

== ENCOUNTER → 2018-06-26 | Outpatient (CLI) | payer OTHER ==
--- NOTE | 2018-06-26 13:42 | US ---
EXAMINATION TYPE: US OB anatomy transabd DATE OF EXAM: 06/26/2018 COMPARISON: NONE HISTORY: Z36 FOLLOW UP PREV ABN ULTRASOUND OR RE EVALUATION TECHNIQUE: Transabdominal (TA) EXAM MEASUREMENTS: GESTATIONAL AGE / DATING Physician Established: (20 weeks/4 days) EDC: 11/09/2018 Dates by LMP: (20 weeks/4 days) EDC: 11/09/2018 Dates by First Scan: (20 weeks/3 days) EDC: 11/10/2018 Dates by Current Scan for: (20 weeks/0 days) EDC: 11/13/2018 SURVEY IUP: Single PLACENTA: Anterior PREVIA: No previa АЛЕКСАНДР: 14.7 cm Normal CERVICAL LENGTH (transabdominal: norm > 3.0cm): 4.1 cm BIOMETRY PRESENTATION: Variable LIE: Transverse lie with head maternal Right BPD: 4.4 cm 19 weeks / 3 days HC: 17.5 cm 20 weeks / 1 days AC: 13.9 cm 19 weeks / 3 days FL: 3.4 cm 20 weeks / 5 days ESTIMATED WEIGHT IN GRAMS: 322 grams ESTIMATED WEIGHT IN LBS/OZ: 0 lbs. 11 oz. WEIGHT PERCENTAGE BASED ON ESTABLISHED DATE: 16 % HC/AC: 1.26 Normal FL/AC: 24% HEART RATE: 136 bpm RHYTHM: Normal ANATOMY SEEN (within normal limits): * Lateral Vent (< 1 cm) 0.8 cm * Cisterna Magna (< 1.1 cm) 0.4 cm * Nuchal Fold (< 0.6 cm) 0.3 cm * Cerebellum (varies with age) 2.1 cm Choroid Plexus (bilateral) Midline Falx Cavus Septi Pellucidi Four Chamber Heart Outflow tracts: LVOT/RVOT Stomach Situs Nose / Lips Diaphragm Kidneys (bilateral) Bladder Cord Insert Three Vessel Cord Longitudinal Spine Transverse Spine Arms (bilateral) Legs (bilateral) Live IUP, measurements consistent with dates. Bilateral choroid plexus cysts previously visualized, n ot visualized on this exam. IMPRESSION: 1. Single live intrauterine with a calculated sonographic age of 20 weeks and 0 days, conco rdant with menstrual age. The previously seen bilateral choroid plexus cysts on the exam of 8 are not visualized on today's examination.
== END | disposition home or self-care (01) ==
LOC: RADUSWWP 08:26
PROVIDERS: ATTEND Obstetrics & Gynecology
DX: Z36.89 Encounter for other specified antenatal screening (principal)
CPT/HCPCS: 76811

== ENCOUNTER → 2018-10-08 | Outpatient (CLI) | payer OTHER ==
--- NOTE | 2018-10-08 09:50 | US ---
EXAMINATION TYPE: US OB >= 14 wk fetus DATE OF EXAM: 10/08/2018 COMPARISON: US 06/26/2018 CLINICAL HISTORY: O36.63X0 Maternal care for excessive growth TECHNIQUE: Transabdominal (TA) GESTATIONAL AGE / DATING Physician Established: (35 weeks/3 days) EDC: 11/09/2018 Dates by LMP: (35 weeks/3 days) EDC: 11/09/2018 Dates by First Scan: (35 weeks/4 days) EDC: 11/10/2018 Dates by Current Scan: (35 weeks/0 days) EDC: 11/12/2018 SURVEY IUP: Single PLACENTA: Anterior PREVIA: No Previa АЛЕКСАНДР: 18.2 cm Normal CERVICAL LENGTH (transabdominal: norm > 3.0cm): 3.0 cm BIOMETRY PRESENTATION: Vertex LIE: Longitudinal BPD: 8.2 cm 33 weeks / 0 days HC: 31.9 cm 36 weeks / 0 days AC: 31.4 cm 35 weeks / 3 days FL: 6.9 cm 35 weeks / 3 days ESTIMATED WEIGHT IN GRAMS: 2609 grams ESTIMATED WEIGHT IN LBS/OZ: 5 lbs. 12 oz. WEIGHT PERCENTAGE BASED ON ESTABLISHED DATES: 41% HC/AC: 1.02 Normal FL/AC: 22% Normal HEART RATE: 143 bpm RHYTHM: Normal Viable IUP, measurements consistent with dates. IMPRESSION: 1. Single intrauterine gestation estimated at 35 weeks 0 days gestation based on the current ultrasou nd measurements. This would have a calculated EDC of 11/12/2018 based on current measurements. 2. Cardiac activity measures 143 bpm
== END | disposition home or self-care (01) ==
LOC: RADUSWWP 08:38
PROVIDERS: ATTEND Obstetrics & Gynecology
DX: O36.63X0 Maternal care for excessive fetal growth, third trimester, not applicable or unspecified (principal); Z3A.35 35 weeks gestation of pregnancy
CPT/HCPCS: 76805

== ENCOUNTER 2018-11-04 22:40 | Outpatient (CLI) | payer OTHER ==
[2018-11-05 00:08] VITALS: BP 128/83; PULSE 80; RESP 18; TEMP 97.7
--- NOTE | 2018-12-04 10:41 | P.MSEPDOC ---
Presenting Problems - Arrival Data Date of Arrival on Unit: 11/04/18 Time of Arrival on Unit: 22:40 Mode of Transport: Ambulatory - Complaint OB-Reason for Admission/Chief Complaint: Possible Onset of Labor Comment: 11/04/18 at 1400. Medical History - Information : 2 Para: 1 Term: 1 : 0 Abortions: Spontaneous or Elective: 0 Number of Living Children: 1 - Gestational Age Gestational Age by CHIOMA (wks/days): 39 Weeks and 3 Days Review of Systems - Review of Systems Constitutional: No problems Breast: No problems ENT: No problems Cardiovascular: No problems Respiratory: No problems Gastrointestinal: No problems Genitourinary: No problems Musculoskeletal: No problems Neurological: No problems Skin: No problems Vital Signs - Temperature Temperature: 97.7 F Temperature Source: Temporal Artery Scan - Pulse Right Pulse Oximetery Pulse Rate: 80 Pulse Assessment Method: Pulse Oximetry - Respirations Respiratory Rate: 18 Oxygen Delivery Method: Room Air O2 Sat by Pulse Oximetry: 99 - Blood Pressure Right Arm Blood Pressure: 128/83 Blood Pressure Mean: 98 Blood Pressure Source: Automatic Cuff Medical Screen Scoring (Pre) - Cervical Exam Dilation: 0 cm = 0 Membranes: Intact - Uterine Contractions Frequency: > 5 minutes apart = 1 Duration: > 40 seconds = 2 Intensity: Contraction palpated strong = 1 - Maternal Vital Signs Maternal Temperature: N/A Maternal Blood Pressure: N/A Signs of Preeclampsia: N/A Maternal Respirations: N/A - Pain Assessment Pain Location and Character: Abdomen Pain Scale Used: Numeric (1 - 10) Pain Intensity: 8 Pain Management Goal: 2 Pain Description: *Acute, Cramping Pain Radiation Location: none Pain Frequency: Intermittent Pain Duration: 10 Pain Duration Units: Hours Pain Behavior: Facial Grimacing, Moving Slowly, Vocalization Effects of Pain: none Pain Aggravating Factors: None Pharmacological Interventions: Discuss Pain Med Options Non-Pharmacological Interventions: Reduce Environmental Stimuli - Maternal Trauma Maternal Trauma: N/A - Assessment Baseline FHR: 120 Heart Rate - NICHD Category: Category I (Normal) = 0 NST: Reactive Position: N/A Station: N/A - Total Score Total Score (Pre): 4 - Level of Risk Level of Risk: Low (0-5) Physician Notification (Pre) - Physician Notified Physician Notified Date: 11/04/18 Physician Notified Time: 23:49 Physician/Practitioner Notifed:: Yasmine Spoke With: Yasmine New Order Received: Yes - Notification Comment Comment: Pt here for rule out labor. cervix closed, 50%, high, contractions 3-7 min apart. Order to discharge with instructions Disposition - Disposition OB Disposition: Discharge to home Discharge Date: 11/05/18 Discharge Time: 00:00 I agree with the RN Medical Screening Exam: Yes Risk & Benefit of care provided described in d/c instruction: Yes Diagnosis: FALSE LABOR AT OR AFTER 37 COMPLETED WEEKS OF GESTATION
== END 2018-11-05 | disposition home or self-care (01) ==
LOC: FBPOP 22:40
PROVIDERS: ATTEND Obstetrics & Gynecology
DX: O47.1 False labor at or after 37 completed weeks of gestation (principal); Z3A.39 39 weeks gestation of pregnancy
CPT/HCPCS: 59025; 99213

== ENCOUNTER 2018-11-06 01:22 | Inpatient (IN) | payer OTHER ==
[2018-11-06] MEDS ORDERED: METHYLERGONOVINE 0.2 MG/ML 1 ML AMP IM PRN (01:36)
[2018-11-06] MEDS ORDERED: LIDOCAINE 0.5% (PF) 5 MG/ML (50 ML SDV) SQ PRN (01:36)
[2018-11-06] MEDS ORDERED: OXYTOCIN 10 UNIT/ML 1 ML VIAL IM PRN (01:36)
[2018-11-06] MEDS ORDERED: CARBOPROST TROMETHAMINE 250 MCG/ML 1 ML AMP IM PRN (01:36)
[2018-11-06] MEDS ORDERED: TERBUTALINE 1 MG/ML VIAL SQ PRN (01:36)
[2018-11-06] MEDS ORDERED: OXYTOCIN 30 UNITS/500 ML NS 30 UNIT in SALINE 1 500ML.BAG IV SCH (01:45)
[2018-11-06] MEDS ORDERED: LACTATED RINGERS 1,000 ML IV SCH (01:45)
[2018-11-06 01:52] LABS: Basophils % (A) 0 %; Eosinophils # (A) 0.1 k/uL (0-0.7); Eosinophils % (A) 1 %; HCT 39.9 % (34.0-46.0); Lymphocytes # (A) 1.3 k/uL (1.0-4.8); Lymphocytes % (A) 13 %; MCH 28.8 pg (25.0-35.0); MCHC 32.7 g/dL (31.0-37.0); MCV 88.2 fL (80.0-100.0); Mean Platelet Volume 9.6; Monocytes # (A) 0.3 k/uL (0-1.0); Monocytes % (A) 3 %; Neutrophils # (A) 7.9 k/uL (1.3-7.7); Neutrophils % (A) 81 %; Platelet Count 163 k/uL (150-450); RBC 4.53 m/uL (3.80-5.40); RDW 13.9 % (11.5-15.5); WBC 9.8 k/uL (3.8-10.6)
[2018-11-06] MEDS: LACTATED RINGERS 1,000 ML IV SCH ×2 (02:05→06:59)
[2018-11-06] MEDS ORDERED: ROPIVACAINE 5MG/ML 20ML VIAL ONE (02:10)
[2018-11-06] MEDS ORDERED: SODIUM CHLORIDE 0.9% 100 ML BAG ONE (02:10)
[2018-11-06] MEDS ORDERED: fentaNYL (PF) 50 MCG/ML 5 ML AMP ONE (02:10)
[2018-11-06 04:06] VITALS: BMI 32.8
[2018-11-06] MEDS ORDERED: diphenhydrAMINE 25 MG CAP PO PRN (11:25)
[2018-11-06] MEDS ORDERED: ZOLPIDEM 5 MG TAB PO PRN (11:25)
[2018-11-06] MEDS ORDERED: SIMETHICONE 80 MG CHEWABLE PO PRN (11:25)
[2018-11-06] MEDS ORDERED: diphenhydrAMINE 50 MG CAP PO PRN (11:25)
[2018-11-06] MEDS ORDERED: LANOLIN CREAM 5 GM TUBE TOPICAL PRN (11:25)
[2018-11-06] MEDS ORDERED: WITCH HAZEL 1 EACH MED..PAD TOPICAL PRN (11:25)
[2018-11-06] MEDS ORDERED: BENZOCAINE/MENTHOL SPRAY 1 GM/SPRAY AEROSOL TOPICAL PRN (11:25)
[2018-11-06] MEDS ORDERED: ACETAMINOPHEN TAB 325 MG TAB PO PRN (11:25)
[2018-11-06] MEDS ORDERED: OXYTOCIN 20 UNITS/1000 ML NS 1,000 ML IV SCH (11:30)
[2018-11-06] MEDS: IBUPROFEN 600 MG TAB PO PRN ×2 (12:54→20:33)
[2018-11-06 13:10] VITALS: RESP 16
[2018-11-06] MEDS: SENNOSIDES-DOCUSATE SODIUM 1 EACH TAB PO SCH (21:59)
[2018-11-07] MEDS: IBUPROFEN 600 MG TAB PO PRN ×2 (04:12→15:33)
[2018-11-07] MEDS: SENNOSIDES-DOCUSATE SODIUM 1 EACH TAB PO SCH (07:54)
--- NOTE | 2018-11-07 08:32 | P.HPOB ---
History of Present Illness H&P Date: 11/06/18 Chief Complaint: [place] 28-year-old presents in labor at 39 weeks and 4 days. She was 5 cm dilated, 90% effaced, and -1 station. She was melia every 2-5 minutes. heart tones 130-135 with moderate variability and reactive. Review of Systems All systems: negative Constitutional: Denies chills, Denies fever Eyes: denies blurred vision, denies pain Ears, nose, mouth and throat: Denies headache, Denies sore throat Cardiovascular: Denies chest pain, Denies shortness of breath Respiratory: Denies cough Gastrointestinal: Denies abdominal pain, Denies diarrhea, Denies nausea, Denies vomiting Genitourinary: Denies dysuria, Denies hematuria Musculoskeletal: Denies myalgias Integumentary: Denies pruritus, Denies rash Neurological: Denies numbness, Denies weakness Psychiatric: Denies anxiety, Denies depression Endocrine: Denies fatigue, Denies weight change Past Medical History Past Medical History: No Reported History Additional Past Medical History / Comment(s): Obstetric history: First was a section for failure to progress and decelerations in the heart rate. This is her second . She has had care with me since 11 weeks gestation. O+, abs neg, Rub Imm, RPR NR, Hep B neg, HIV NR, GBS neg. normal anatomy US. normal 1hr GTT. We have discussed the risks and benefits of vaginal after and she and her expressed understanding. History of Any Multi-Drug Resistant Organisms: None Reported Past Surgical History: Section Past Anesthesia/Blood Transfusion Reactions: No Reported Reaction Past Psychological History: No Psychological Hx Reported Smoking Status: Never smoker Past Alcohol Use History: None Reported Past Drug Use History: None Reported - Past Family History Father Family Medical History: No Reported History Medications and Allergies Home Medications Medication Instructions Recorded Confirmed Type Vit,Calc78/Iron/Folic 1 tab PO DAILY 09/18/16 11/06/18 History [Pretab 29 mg-1 mg Tablet] Allergies Allergy/AdvReac Type Severity Reaction Status Date / Time No Known Allergies Allergy Verified 11/06/18 01:36 Exam Osteopathic Statement: *. No significant issues noted on an osteopathic structural exam other than those noted in the History and Physical/Consult. Vital Signs Temp Pulse Resp BP 11/07/18 00:00 98.4 F 59 L 16 131/75 11/06/18 20:00 97.5 F L 60 16 120/67 11/06/18 16:00 98.1 F 58 L 16 119/75 11/06/18 13:13 98.9 F 71 16 137/64 11/06/18 12:43 80 16 127/70 11/06/18 12:13 98.8 F 85 16 116/59 11/06/18 11:58 16 11/06/18 11:43 81 16 117/69 11/06/18 11:28 81 16 117/69 11/06/18 11:13 99.5 F 85 16 134/65 Intake and Output 11/06/18 11/07/18 11/07/18 22:59 06:59 14:59 Intake Total 1600 Balance 1600 Intake: IV 1600 Lactated Ringers 1,000 ml 900 @ 125 mls/hr IV .Q8H HUAN Rx#:[id number] Oxytocin 20 Units/1000 ml 700 Ns 1,000 ml @ Per Protocol IV .Q0M HUAN Rx#: [id number] Other: # Voids 1 2 Heart: Regular rate and rhythm Lungs: Clear to auscultation bilaterally Abdomen: Soft, nontender Extremities: Negative Homans sign Results Result Diagrams: 11/06/18 01:36 Assessment and Plan (1) Normal labor Current Visit: No Status: Resolved Code(s): O80 - ENCOUNTER FOR FULL-TERM UNCOMPLICATED DELIVERY; Z37.9 - OUTCOME OF DELIVERY, UNSPECIFIED SNOMED Code(s): 62179491 (2) Previous section Current Visit: Yes Status: Acute Code(s): Z98.891 - HISTORY OF UTERINE SCAR FROM PREVIOUS SURGERY SNOMED Code(s): 159932236 Plan: 1. Expectant management and Pitocin augmentation if necessary 2. Anticipate normal vaginal delivery
--- NOTE | 2018-11-07 08:40 | P.PROBDLV ---
Vaginal Delivery Note - . Vaginal Delivery Note: 28-year-old presents in labor at 39 weeks and 4 days. She was 5 cm dilated, 90% effaced, and -1 station. She was melia every 2-5 minutes. heart tones 130-135 with moderate variability and reactive. At 5:10 AM she spontaneously ruptured and clear fluid was noted. When I came to see her on 8:00 in the morning her cervix was 7 cm dilated and there was a fore bag I did break, clear fluid. Her cervix was completely dilated by 10:33 AM. She pushed, delivered a viable female infant over midline episiotomy under epidural anesthesia. Head delivered OA, anterior shoulder delivered gentle downward guidance for by posterior shoulder and rest of body. Nose and mouth bulb suctioned, cord clamped and cut, infant placed mother's abdomen. Apgars 8, 9, weight 7 lbs. 10 oz. Vagina, cervix, and perineum were inspected. Second- degree midline laceration was repaired with 3-0 Vicryl and 2-0 Vicryl. Estimated blood loss 200 mL. Mother and baby in stable condition.
--- NOTE | 2018-11-07 08:44 | P.PNOBGVD ---
Subjective - Subjective Principal diagnosis: Status post total vaginal delivery day #1 Interval history: Patient seen and examined. Denies nausea, vomiting, chest pain, shortness of breath or calf pain. Patient reports: Reports appetite normal, Reports voiding normally, Reports pain well controlled, Reports ambulating normally [place]: doing well Objective - Latest Vital Signs Latest vital signs: Vital Signs Temp Pulse Resp BP 11/07/18 00:00 98.4 F 59 L 16 131/75 11/06/18 20:00 97.5 F L 60 16 120/67 11/06/18 16:00 98.1 F 58 L 16 119/75 11/06/18 13:13 98.9 F 71 16 137/64 11/06/18 12:43 80 16 127/70 11/06/18 12:13 98.8 F 85 16 116/59 11/06/18 11:58 16 11/06/18 11:43 81 16 117/69 11/06/18 11:28 81 16 117/69 11/06/18 11:13 99.5 F 85 16 134/65 Intake and Output 11/06/18 11/07/18 11/07/18 22:59 06:59 14:59 Intake Total 1600 Balance 1600 Intake: IV 1600 Lactated Ringers 1,000 ml 900 @ 125 mls/hr IV .Q8H HUAN Rx#:[id number] Oxytocin 20 Units/1000 ml 700 Ns 1,000 ml @ Per Protocol IV .Q0M HUAN Rx#: [id number] Other: # Voids 1 2 1 - Exam Lungs: bilateral: normal Chest: Normal S1, Normal S2 Extremities: Present: normal Abdomen: Present: normal appearance, soft Uterus: Present: normal, firm Assessment and Plan (1) Previous section Current Visit: Yes Status: Chronic Code(s): Z98.891 - HISTORY OF UTERINE SCAR FROM PREVIOUS SURGERY SNOMED Code(s): 640815467 (2) Vaginal after Current Visit: Yes Status: Acute Code(s): O34.219 - MATERNAL CARE FOR UNSP TYPE SCAR FROM PREVIOUS DEL SNOMED Code(s): 308537403 Plan: 1. Continue care
[2018-11-07 16:29] VITALS: BP 123/60; PULSE 68; TEMP 97.5
== END 2018-11-07 19:35 | disposition home or self-care (01) | DRG 807 ==
LOC: 4FBP 01:22
PROVIDERS: ADMIT Obstetrics & Gynecology; ATTEND Obstetrics & Gynecology
PROC: 10E0XZZ Delivery of Products of Conception, External Approach (ICD-10-PCS; principal; 2018-11-06)
PROC: 0KQM0ZZ Repair Perineum Muscle, Open Approach (ICD-10-PCS; 2018-11-06)
PROC: 3E0S3BZ Introduction of Anesthetic Agent into Epidural Space, Percutaneous Approach (ICD-10-PCS; 2018-11-06)
PROC: 0W8NXZZ Division of Female Perineum, External Approach (ICD-10-PCS; 2018-11-06)
DX: O34.219 Maternal care for unspecified type scar from previous cesarean delivery (principal); Z37.0 Single live birth; O70.1 Second degree perineal laceration during delivery; Z3A.39 39 weeks gestation of pregnancy; Z79.899 Other long term (current) drug therapy
CPT/HCPCS: 85025; 86850; 86900; 86901

== ENCOUNTER → 2020-10-07 | Outpatient (CLI) | payer OTHER ==
--- NOTE | 2020-10-08 11:11 | US ---
EXAMINATION TYPE: US OB >= 14 wk fetus DATE OF EXAM: 10/07/2020 COMPARISON: None CLINICAL HISTORY: Z36 Confirm datesConfirm dates. TECHNIQUE: Transabdominal (TA) GESTATIONAL AGE / DATING Physician Established: Not yet established Dates by LMP: LMP unknown Dates by First Scan: No previous this is first scan ( Dates by Current Scan: (16 weeks/2 days) EDC: 03/22/2021 SURVEY IUP: Single PLACENTA: Posterior PREVIA: Appears to be partial. АЛЕКСАНДР: 11.50 cm Normal CERVICAL LENGTH (transabdominal: norm > 3.0cm): 4.2 cm BIOMETRY PRESENTATION: Variable BPD: 3.1 cm 15 weeks / 6 days HC: 12.7 cm 16 weeks / 4 days AC: 10.3 cm 16 weeks / 2 days FL: 2.0 cm 16 weeks / 0 days ESTIMATED WEIGHT IN GRAMS: 146 grams ESTIMATED WEIGHT IN LBS/OZ: 0 lbs. 5 oz. HC/AC: 1.23 cm Normal FL/AC: 19% Normal HEART RATE: 142 bpm RHYTHM: Normal IMPRESSION: Single intrauterine gestation estimated at 16 weeks 2 days gestation based on current ultrasound nikole urements. Cardiac activity measures 142 bpm 2. Placenta previa or partial involvement adjacent to the internal cervical os is likely present.
== END | disposition home or self-care (01) ==
LOC: RADUSWWP 16:17
PROVIDERS: ATTEND Obstetrics & Gynecology
DX: Z36.9 Encounter for antenatal screening, unspecified (principal); O36.62X0 Maternal care for excessive fetal growth, second trimester, not applicable or unspecified; Z3A.16 16 weeks gestation of pregnancy
CPT/HCPCS: 76805

== ENCOUNTER → 2020-11-02 | Outpatient (CLI) | payer OTHER ==
--- NOTE | 2020-11-02 11:37 | US ---
EXAMINATION TYPE: US OB anatomy transabd DATE OF EXAM: 11/02/2020 COMPARISON: 10/07/2020 HISTORY: 30 year-old female O36.62X0 Large for dates 2nd trimester TECHNIQUE: Transabdominal (TA) FINDINGS: EXAM MEASUREMENTS: GESTATIONAL AGE / DATING Physician Established: (20 weeks/0 days) EDC: 03/22/2021 Dates by LMP: Unknown Dates by First Scan: (20 weeks/0 days) EDC: 03/22/2021 Dates by Current Scan for: (19 weeks/2 days) 5 days less growth than expected as compared to 021. EDC: 03/27/2021 SURVEY IUP: Single PLACENTA: Posterior PREVIA: No previa. The inferior placental tip is approximately 3 cm from the internal cervical os. АЛЕКСАНДР: 13.0 cm Normal CERVICAL LENGTH (transabdominal: norm > 3.0cm): 5.3 cm BIOMETRY PRESENTATION: Breech BPD: 4.3 cm 19 weeks / 0 days HC: 17.1 cm 19 weeks / 5 days AC: 12.8 cm 18 weeks / 3 days FL: 3.2 cm 20 weeks / 0 days ESTIMATED WEIGHT IN GRAMS: 278 grams ESTIMATED WEIGHT IN LBS/OZ: 0 lbs. 10 oz. WEIGHT PERCENTAGE BASED ON ESTABLISHED DATE: 10 % HC/AC: 1.33 Abnormal increased (normal 1.09-1.26) FL/AC: 25% HEART RATE: 158 bpm RHYTHM: Normal ANATOMY SEEN (within normal limits): Lateral Vent (< 1 cm) 0.8 cm Cisterna Magna (< 1.1 cm) 0.4 cm Nuchal Fold (< 0.6 cm) 0.3 cm Cerebellum (varies with age) 1.8 cm Choroid Plexus (bilateral) Midline Falx Cavus Septi Pellucidi Four Chamber Heart Stomach Situs Nose / Lips Diaphragm Kidneys (bilateral) Bladder Three Vessel Cord Longitudinal Spine Transverse Spine Arms (bilateral) Legs (bilateral) ANATOMY SUBOPTIMAL DUE TO POSITION Cord Insert - excessive soft tissue bulge along the lateral aspect of the cord insertion suspected to be due to positioning but should be reassessed. Outflow tracts: LVOT/RVOT DRILLER PORTABLE NOTES: Viable single IUP measuring 19 weeks 2 days with a heart rate of 158bpm and an est imated delivery date of 03/27/2021. IMPRESSION: 1. Single uterine with established gestational age of 20 weeks 0 days by prior dating scan. There has been 5 days less growth than expected as compared to 10/07/2020 (currently measuring 19 wee ks 2 days) and placing the EFW at the 10th percentile. 2. In addition, HC/AC is increased above the normal range at 1.33. Given less growth than expected, E FW at the 10th percentile, and increased HC/AC (which may be seen with brain sparing physiology), jessica rt interval follow-up is recommended. 3. Suboptimal visualization of the cord insertion and outflow tracts. These should also be reassessed at the patient's follow-up. The remaining structures appear normal.
== END | disposition home or self-care (01) ==
LOC: RADUSWWP 09:52
PROVIDERS: ATTEND Obstetrics & Gynecology
DX: O36.62X0 Maternal care for excessive fetal growth, second trimester, not applicable or unspecified (principal); Z3A.19 19 weeks gestation of pregnancy
CPT/HCPCS: 76811

== ENCOUNTER → 2021-02-18 | Outpatient (CLI) | payer OTHER ==
--- NOTE | 2021-02-19 07:11 | US ---
EXAMINATION TYPE: US OB >= 14 wk fetus DATE OF EXAM: 02/18/2021 COMPARISON: None CLINICAL HISTORY: O36.63XO LARGE FOR DATES TECHNIQUE: Transpelvic ultrasound was performed. GESTATIONAL AGE / DATING Physician Established: (35 weeks/0 days) EDC: 03/25/2021 Dates by LMP: LMP unknown Dates by First Scan: (35 weeks/3 days) EDC: 03/22/2021 Dates by Current Scan: (34 weeks/0 days) EDC: 04/01/2021 SURVEY IUP: Single PLACENTA: Posterior PREVIA: No Previa АЛЕКСАНДР: 14.2 cm Normal CERVICAL LENGTH (transabdominal: norm > 3.0cm): 5.4 cm BIOMETRY PRESENTATION: Vertex LIE: Longitudinal BPD: 8.2 cm 33 weeks / 0 days HC: 31.5 cm 35 weeks / 3 days AC: 29.6 cm 33 weeks / 4 days FL: 6.7 cm 34 weeks / 2 days ESTIMATED WEIGHT IN GRAMS: 2304 grams ESTIMATED WEIGHT IN LBS/OZ: 5 lbs. 1 oz. WEIGHT PERCENTAGE BASED ON ESTABLISHED DATES: 19% HC/AC: 1.07 Normal FL/AC: 22.55 Normal HEART RATE: 161 bpm RHYTHM: Normal Viable single IUP measuring 34 weeks 0 days with a heart rate of 161bpm and an estimated delivery moise e of 04/01/2021. This is not an anatomic survey. IMPRESSION: Single live intrauterine measuring approximately 34 weeks and 0 days by sonographic criteri a.
== END | disposition home or self-care (01) ==
LOC: RADUSWWP 16:21
PROVIDERS: ATTEND Obstetrics & Gynecology
DX: O36.63X0 Maternal care for excessive fetal growth, third trimester, not applicable or unspecified (principal); Z3A.34 34 weeks gestation of pregnancy
CPT/HCPCS: 76805

== ENCOUNTER 2021-03-20 10:06 | Outpatient (CLI) | payer OTHER ==
[2021-03-20 11:42] VITALS: BP 120/80; PULSE 79; RESP 18; TEMP 97.3
--- NOTE | 2021-03-20 12:04 | P.MSEPDOC ---
Presenting Problems - Arrival Data Date of Arrival on Unit: 03/20/21 Time of Arrival on Unit: 10:16 Mode of Transport: Ambulatory - Complaint OB-Reason for Admission/Chief Complaint: Possible Onset of Labor Comment: contractions since 0000 Medical History - Information : 3 Para: 2 Term: 2 : 0 Abortions: Spontaneous or Elective: 0 Number of Living Children: 2 - Gestational Age Gestational Age by CHIOMA (wks/days): 39 Weeks and 2 Days - History Complications: Prior Comment: Planning , successful x1 Review of Systems - Review of Systems Constitutional: No problems Breast: No problems ENT: No problems Cardiovascular: No problems Respiratory: No problems Gastrointestinal: No problems Genitourinary: No problems Musculoskeletal: No problems Neurological: No problems Skin: No problems Vital Signs - Temperature Temperature: 97.3 F Temperature Source: Temporal Artery Scan - Pulse Right Sitting Brachial Pulse Rate: 79 Pulse Assessment Method: Automatic Cuff - Respirations Respiratory Rate: 18 Oxygen Delivery Method: Room Air O2 Sat by Pulse Oximetry: 100 - Blood Pressure Right Arm Sitting Blood Pressure: 120/80 Blood Pressure Mean: 93 Blood Pressure Source: Automatic Cuff Medical Screen Scoring - Cervical Exam Dilation (cm): 1 Station: -3 - Uterine Contractions Intensity: Mild Resting: Soft to palpation - Assessment - Baby A Baseline FHR: 130 Heart Rate - NICHD Category: Category I (Normal) NST: Reactive Physician Notification - Physician Notified Physician Notified Date: 03/20/21 Physician Notified Time: 11:30 Physician: Dr Artis New Order Received: Yes - Notification Comment Comment: ok to dc home Maternal Triage Index - Maternal Triage Index Presenting for scheduled procedure w/no complaint: No - Stat/Priority 1 Stat Priority 1: No - Urgent/Priority 2 Urgent Priority 2: No - Prompt/Priority 3 Prompt Priority 3: No - Non-Urgent/Priority 4 Non-Urgent Priority 4: Yes Criteria Met for Priority 4: amnisure neg. No cervical change. Dr Artis aware. Disposition - Disposition OB Disposition: Discharge to home Discharge Date: 03/20/21 Discharge Time: 11:35 I agree with the RN Medical Screening Exam: Yes Case reviewed; plan agreed upon as documented in EMR&OBIX.: Yes Diagnosis: FALSE LABOR AT OR AFTER 37 COMPLETED WEEKS OF GESTATION
== END 2021-03-20 11:35 | disposition home or self-care (01) ==
LOC: FBPOP 10:06
PROVIDERS: ATTEND Obstetrics & Gynecology
DX: O47.1 False labor at or after 37 completed weeks of gestation (principal); Z3A.39 39 weeks gestation of pregnancy
CPT/HCPCS: 59025; 84112; 99213

== ENCOUNTER 2021-03-24 10:21 | Inpatient (IN) | payer OTHER ==
[2021-03-24] MEDS ORDERED: CARBOPROST TROMETHAMINE 250 MCG/ML 1 ML AMP IM PRN (10:31)
[2021-03-24] MEDS ORDERED: LIDOCAINE 0.5% (PF) 5 MG/ML (50 ML SDV) SQ PRN (10:31)
[2021-03-24] MEDS ORDERED: OXYTOCIN 10 UNIT/ML 1 ML VIAL IM PRN (10:31)
[2021-03-24] MEDS ORDERED: METHYLERGONOVINE 0.2 MG/ML 1 ML AMP IM PRN (10:31)
[2021-03-24] MEDS ORDERED: TERBUTALINE 1 MG/ML VIAL SQ PRN (10:31)
[2021-03-24] MEDS ORDERED: OXYTOCIN 30 UNITS/500 ML NS 30 UNIT in SALINE 1 500ML.BAG IV SCH (10:45)
[2021-03-24] MEDS: LACTATED RINGERS 1,000 ML IV SCH ×3 (10:56→14:55)
[2021-03-24 11:07] LABS: Basophils % (A) 0 %; Eosinophils # (A) 0.1 k/uL (0-0.7); Eosinophils % (A) 2 %; HCT 36.7 % (34.0-46.0); HGB 12.5 gm/dL (11.4-16.0); Lymphocytes # (A) 1.2 k/uL (1.0-4.8); Lymphocytes % (A) 14 %; MCH 29.2 pg (25.0-35.0); MCHC 34.1 g/dL (31.0-37.0); MCV 85.6 fL (80.0-100.0); Mean Platelet Volume 10.8; Monocytes # (A) 0.3 k/uL (0-1.0); Monocytes % (A) 3 %; Neutrophils # (A) 6.7 k/uL (1.3-7.7); Neutrophils % (A) 79 %; RBC 4.28 m/uL (3.80-5.40); RDW 14.7 % (11.5-15.5); WBC 8.5 k/uL (3.8-10.6)
[2021-03-24 11:29] LABS: Platelet Count 134 k/uL (150-450)
[2021-03-24] MEDS ORDERED: SODIUM CHLORIDE 0.9% 100 ML BAG ONE (11:29)
[2021-03-24] MEDS ORDERED: ROPIVACAINE 5MG/ML 20ML VIAL ONE (11:29)
[2021-03-24] MEDS ORDERED: fentaNYL (PF) 50 MCG/ML 5 ML AMP ONE (11:29)
[2021-03-24 11:30] LABS: Large Platelets Present
[2021-03-24] MEDS ORDERED: ZOLPIDEM 5 MG TAB PO PRN (17:18)
[2021-03-24] MEDS ORDERED: BENZOCAINE/MENTHOL SPRAY 1 GM/SPRAY AEROSOL TOPICAL PRN (17:18)
[2021-03-24] MEDS ORDERED: SIMETHICONE 80 MG CHEWABLE PO PRN (17:18)
[2021-03-24] MEDS ORDERED: diphenhydrAMINE 50 MG CAP PO PRN (17:18)
[2021-03-24] MEDS ORDERED: LANOLIN CREAM 5 GM TUBE TOPICAL PRN (17:18)
[2021-03-24] MEDS ORDERED: HYDROCORTISONE 2.5% RECTAL CREAM 30 GM TUBE RECTAL PRN (17:18)
[2021-03-24] MEDS ORDERED: diphenhydrAMINE 50 MG/ML 1 ML VIAL IVP PRN ×2 (17:18)
[2021-03-24] MEDS ORDERED: diphenhydrAMINE 25 MG CAP PO PRN (17:18)
--- NOTE | 2021-03-24 17:21 | P.HPOB ---
History of Present Illness H&P Date: 03/24/21 Chief Complaint: at term: Active labor: Prior section Patient is a 31-year-old G3 3 P2 at 39 weeks gestation who ryes in active labor making cervical change dilated to 6 cm at presentation. Her course has been generally unremarkable. She did have a section with her first baby but then she is had a successful with her second baby and she is trying for a trial of labor after with this baby. Pertinent labs could O+ blood type, Rh antibody was negative, rubella is immune, hepatitis B surface antigen/RPR and HIV are all negative as is groupie strep. Category 1 tracing is noted and she is melia every 5-8 minutes. Artificial rupture membranes was performed and clear fluid is noted. Past Medical History Past Medical History: No Reported History Additional Past Medical History / Comment(s): Obstetric history: First was a section for failure to progress and decelerations in the heart rate. This is her second . She has had care with [facility] since 11 weeks gestation. O+, abs neg, Rub Imm, RPR NR, Hep B neg, HIV NR, GBS neg. normal anatomy US. normal 1hr GTT. We have discussed the risks and benefits of vaginal after and she and her expressed understanding. History of Any Multi-Drug Resistant Organisms: None Reported Past Surgical History: Section Past Anesthesia/Blood Transfusion Reactions: No Reported Reaction Past Psychological History: No Psychological Hx Reported Smoking Status: Never smoker Past Alcohol Use History: None Reported Past Drug Use History: None Reported - Past Family History Father Family Medical History: No Reported History Medications and Allergies Home Medications Medication Instructions Recorded Confirmed Type Vit,Calc78/Iron/Folic 1 tab PO DAILY 09/18/16 03/24/21 History [Pretab 29 mg-1 mg Tablet] Allergies Allergy/AdvReac Type Severity Reaction Status Date / Time No Known Allergies Allergy Verified 03/20/21 10:13 Exam Osteopathic Statement: *. No significant issues noted on an osteopathic structural exam other than those noted in the History and Physical/Consult. Vital Signs Temp Pulse Resp BP 03/24/21 10:30 97.6 F 83 18 116/73 Intake and Output 03/24/21 03/24/21 03/24/21 06:59 14:59 22:59 Intake Total 2.233 Output Total 400 Balance -400 2.233 Intake: Intake, IV Titration 2.233 Amount Oxytocin 30 Units/500 ml 2.233 Ns 30 unit In Saline 1 500ml.bag @ Per Protocol IV .Q0M [facility] Rx#:[id number] Output: Urine 400 Other: Weight 84.368 kg - OBG Physical Exam Breast: both: normal (no masses) Abdomen: bowel sounds normal, no diffuse tenderness, no bruit present, no guarding noted, no hepatomegaly, no splenomegaly, no mass Vulva: both: normal Vagina: normal moisture, no discharge Cervix: no lesion, no discharge Uterus: normal size, normal contour Adnexa: both: normal Anus/Rectum: normal perianal skin, no rectal mass, no hemorrhoids, heme negative Results Result Diagrams: 03/24/21 10:55 Abnormal Lab Results - Last 24 Hours (Table) 03/24/21 Range/Units 10:55 Plt Count 134 L (150-450) k/uL
--- NOTE | 2021-03-24 17:22 | P.PROBDLV ---
Vaginal Delivery Note - . Vaginal Delivery Note: Patient progressed complete and pushed with spontaneous vaginal delivery of a viable male over an intact perineum. Falling deliver the head a nuchal cord 1 was noted and baby was delivered through the nuchal cord. Baby was left occiput anterior position. Gentle downward upper traction was then performed to deliver the shoulders followed by the remainder the baby. was then bulb suctioned and placed on mother's abdomen where the umbilical cord was allowed to pulsate for 30 seconds prior to clamping cutting. Nursery personnel was present and assumed care. Placenta was then delivered intact Pitocin was added to the IV. A right labial laceration was noted and repaired with 3-0 Vicryl. Both mother and baby are stable findings delivery. Apgars pending, but weight was 7 lbs. 14 oz.
[2021-03-24] MEDS: IBUPROFEN 600 MG TAB PO PRN (18:26)
[2021-03-24] MEDS: ACETAMINOPHEN TAB 325 MG TAB PO PRN (19:27)
[2021-03-24] MEDS: SENNOSIDES-DOCUSATE SODIUM 1 EACH TAB PO SCH (20:07)
[2021-03-25] MEDS: IBUPROFEN 600 MG TAB PO PRN ×3 (04:14→21:26)
--- NOTE | 2021-03-25 07:18 | P.PNOBGVD ---
Subjective - Subjective Principal diagnosis: S/P NVDPPD #1 Interval history: Pt seen and examined. Denies N/V, F/C, CP, SOB, calf pain. Patient reports: Reports appetite normal, Reports voiding normally, Reports pain well controlled, Reports ambulating normally [place]: doing well Objective - Latest Vital Signs Latest vital signs: Vital Signs Temp Pulse Resp BP Pulse Ox 03/25/21 04:00 97.6 F 67 16 108/50 03/24/21 23:39 97.9 F 67 16 98/48 03/24/21 19:15 99.9 F H 61 16 114/66 03/24/21 18:45 99.2 F 62 18 131/61 03/24/21 18:15 98.4 F 70 18 120/58 03/24/21 17:58 67 138/68 03/24/21 17:45 99.2 F 70 18 118/58 03/24/21 17:30 78 119/58 03/24/21 17:15 99.3 F 73 18 127/59 97 03/24/21 10:30 97.6 F 83 18 116/73 Intake and Output 03/24/21 03/25/21 03/25/21 22:59 06:59 14:59 Intake Total 2.233 Balance 2.233 Intake: Intake, IV Titration 2.233 Amount Oxytocin 30 Units/500 ml 2.233 Ns 30 unit In Saline 1 500ml.bag @ Per Protocol IV .Q0M [facility] Rx#:[id number] Other: # Voids 1 1 - Exam Lungs: bilateral: normal Chest: Normal S1, Normal S2 Extremities: Present: normal Abdomen: Present: normal appearance, soft Uterus: Present: normal, firm - Labs Labs: Abnormal Lab Results - Last 24 Hours (Table) 03/24/21 Range/Units 10:55 Plt Count 134 L (150-450) k/uL Assessment and Plan (1) Vaginal after Current Visit: No Status: Acute Code(s): O34.219 - MATERNAL CARE FOR UNSP TYPE SCAR FROM PREVIOUS DEL SNOMED Code(s): 173664129 Plan: 1. cont pp care
[2021-03-25] MEDS: ACETAMINOPHEN TAB 325 MG TAB PO PRN (07:38)
[2021-03-25] MEDS: SENNOSIDES-DOCUSATE SODIUM 1 EACH TAB PO SCH ×2 (07:38→20:05)
--- NOTE | 2021-03-26 06:47 | P.PNOBGVD ---
Subjective - Subjective Patient reports: Reports appetite normal, Reports voiding normally, Reports pain well controlled, Reports ambulating normally : doing well Objective - Latest Vital Signs Latest vital signs: Vital Signs Temp Pulse Resp BP Pulse Ox 03/25/21 23:45 97.4 F L 65 16 122/80 03/25/21 16:00 97.8 F 65 16 108/56 98 03/25/21 07:30 97.3 F L 77 17 119/58 97 Intake and Output 03/25/21 03/25/21 03/26/21 14:59 22:59 06:59 Output Total 400 Balance -400 Output: Urine 400 Other: # Voids 1 1 - Exam Lungs: bilateral: normal Chest: Normal S1, Normal S2 Extremities: Present: normal Abdomen: Present: normal appearance, soft Uterus: Present: normal, firm Assessment and Plan Assessment: day #2. Patient is resting without complaints and wishes to go home. Vital signs are stable she's afebrile. Uterus is firm nontender she's having normal lochia. My impression this is a normal course. Plan is to continue routine care discharge home later today (1) Vaginal after Current Visit: No Status: Acute Code(s): O34.219 - MATERNAL CARE FOR UNSP TYPE SCAR FROM PREVIOUS DEL SNOMED Code(s): 153592142
--- NOTE | 2021-03-26 06:50 | P.DS ---
Providers Date of admission: 03/24/21 10:30 Expected date of discharge: 03/26/21 Attending physician: Ledy Bal Primary care physician: Stated None - Discharge Diagnosis(es) (1) Vaginal after Current Visit: No Status: Acute Hospital Course: Please see dictated H&P for intimate details of this patient's admission. Brief summary this is a pleasant 31-year-old 3 para 2 female 39-6/7 weeks gestation admitted to labor and delivery in active labor. Patient quickly goes on have a vaginal delivery of viable male (). day #2 patient's felt be stable for discharge home follow up with Dr. Bal and 6 weeks Procedures: Vaginal after section Patient Condition at Discharge: Good Plan - Discharge Summary New Discharge Prescriptions: New Ibuprofen [Motrin] 600 mg PO Q6HR PRN #30 tab PRN Reason: Pain No Action Vit,Calc78/Iron/Folic [Pretab 29 mg-1 mg Tablet] 1 tab PO DAILY Discharge Medication List Vit,Calc78/Iron/Folic [Pretab 29 mg-1 mg Tablet] 1 tab PO DAILY 09/18/16 [History] Ibuprofen [Motrin] 600 mg PO Q6HR PRN #30 tab 03/26/21 [Rx] Follow up Appointment(s)/Referral(s): Ledy Bal DO [Doctor of Osteopathic Medicine] - 05/05/21 11:15 am Patient Instructions/Handouts: Vaginal Delivery (DC) Activity/Diet/Wound Care/Special Instructions: No intercourse or anything per vagina for 6 weeks. Please call if any fever, chills, excessive vaginal bleeding, and/or abdominal pain Discharge Disposition: HOME SELF-CARE
[2021-03-26] MEDS: SENNOSIDES-DOCUSATE SODIUM 1 EACH TAB PO SCH (08:42)
[2021-03-26] MEDS: IBUPROFEN 600 MG TAB PO PRN (08:42)
[2021-03-26 10:08] VITALS: BP 118/78; PULSE 71; RESP 20; TEMP 97.5
== END 2021-03-26 14:15 | disposition home or self-care (01) | DRG 807 ==
LOC: FBPOP 10:21 → 4FBP 10:30
PROVIDERS: ADMIT Obstetrics & Gynecology; ATTEND Obstetrics & Gynecology
PROC: 3E0R3BZ Introduction of Anesthetic Agent into Spinal Canal, Percutaneous Approach (ICD-10-PCS; principal; 2021-03-24)
PROC: 10E0XZZ Delivery of Products of Conception, External Approach (ICD-10-PCS; principal; 2021-03-24)
PROC: 00HU33Z Insertion of Infusion Device into Spinal Canal, Percutaneous Approach (ICD-10-PCS; principal; 2021-03-24)
PROC: 0HQ9XZZ Repair Perineum Skin, External Approach (ICD-10-PCS; principal; 2021-03-24)
DX: O34.211 Maternal care for low transverse scar from previous cesarean delivery (principal); Z37.0 Single live birth; N85.8 Other specified noninflammatory disorders of uterus; O69.81X0 Labor and delivery complicated by cord around neck, without compression, not applicable or unspecified; O70.0 First degree perineal laceration during delivery; Z3A.39 39 weeks gestation of pregnancy; Z79.899 Other long term (current) drug therapy
CPT/HCPCS: 85025; 86850; 86900; 86901

== ENCOUNTER → 2022-05-26 | Outpatient (CLI) | payer OTHER ==
--- NOTE | 2022-05-26 15:18 | US ---
EXAMINATION TYPE: US pelvis complete transvag DATE OF EXAM: 05/26/2022 COMPARISON: CLINICAL HISTORY: R19.00 intra-abd/plvic swelling/mass/lump unspec. Pelvic pressure during routing ph ysical exam TECHNIQUE: Transvaginal (TV) and Transabdominal (TA) . Transabdominal sonographic images of the pel vis were acquired. Transvaginal sonographic images were medically necessary to better assess the fol lowing anatomy: Date of LMP: 04/26/2022 EXAM MEASUREMENTS: Uterus: 7.9 x 4.6 x 6.2 cm Endometrial Stripe: 0.78 cm Right Ovary: 2.2 x 1.4 x 1.4 cm Left Ovary: 2.1 x 1.3 x 1.4 cm 1. Uterus: Anteverted wnl 2. Endometrium: wnl 3. Right Ovary: wnl 4. Left Ovary: wnl 5. Bilateral Adnexa: Prominent vessels within right adnexa, left adnexa within normal limits 6. Posterior cul-de-sac: wnl IMPRESSION: 1. No acute pelvic ultrasound abnormality. 2. Some prominence of right adnexal vascular structures of uncertain significance. Consider pelvic CT for follow-up
== END | disposition home or self-care (01) ==
LOC: RADUSWWP 13:43
PROVIDERS: ATTEND Family Medicine
DX: R19.00 Intra-abdominal and pelvic swelling, mass and lump, unspecified site (principal)
CPT/HCPCS: 76830; 76856

== ENCOUNTER → 2022-06-17 | Outpatient (CLI) | payer OTHER ==
--- NOTE | 2022-06-17 16:34 | CT ---
EXAMINATION TYPE: CT pelvis wo/w con DATE OF EXAM: 06/17/2022 COMPARISON: 01/09/2017 HISTORY: 32-year-old female R19.00, intra-abdominal and pelvic swelling, mass and lump Possible lump or swelling right anterior TECHNIQUE: Contiguous axial scanning of the pelvis before and after administration of 70 mL Isovue-30 0 300 IV contrast. Delayed images through the bladder and coronal/sagittal reconstructions performed . CT DLP: 703.7 mGycm Automated exposure control for dose reduction was used. FINDINGS: Visualized lower aspect of the kidneys show no gross abnormality. No dilated small bowel. N o significant stool burden. Normal appendix. Oral contrast progressed to the rectum. No abnormal fluid collection in the pelvis. There is prominent distention of the urinary bladder up to 10.8 cm craniocaudal. The bladder nearly f ills the pelvis from side to side measuring up to 10.7 cm wide. Left-sided pelvic phleboliths. The uterus is prominent in size measuring 11.1 x 4.8 x 6.2 cm. It is obliqued to the right. The ovari es present at the right uterine fundus directly opposing the deep surface of the abdominal wall muscu lature and measures normal size at 3.0 x 3.1 x 3.0 cm. Underlying follicular change measures 2.0 cm. Smaller left ovary. No osseous destructive process. scar noted. IMPRESSION: 1. PROMINENT DISTENTION OF THE URINARY BLADDER. IT FILLS THE PELVIS FROM SIDE TO SIDE MEASURING 10.7 CM WIDE. 2. GENEROUS SIZE OF THE UTERUS AT 11.1 X 4.8 X 6.2 CM. IT IS ANTEVERTED AND OBLIQUED TOWARDS THE RIGH T WITH THE FUNDUS APPROACHING THE DEEP SURFACE OF THE RIGHT LOWER QUADRANT ABDOMINAL WALL MUSCULATURE . 3. THE RIGHT OVARY IS NORMAL SIZE AND DEMONSTRATES PROMINENT FOLLICULAR CHANGE. IT IS AT THE RIGHT UT ERINE FUNDUS AND DIRECTLY ABUTS THE DEEP SURFACE OF THE RIGHT LOWER QUADRANT ABDOMINAL WALL MUSCULATU RE. THIS MAY ACCOUNT FOR THE CLINICAL LUMP.
== END | disposition home or self-care (01) ==
LOC: RADCTMAIN 11:26
PROVIDERS: ATTEND Family Medicine
DX: N32.89 Other specified disorders of bladder (principal)
CPT/HCPCS: 72194; 36415; Q9967

== ENCOUNTER → 2023-02-09 | Outpatient (CLI) | payer OTHER ==
--- NOTE | 2023-02-09 09:43 | MM ---
Reason for Exam: Clinical finding. Baseline mammogram. Indicated Problems: Other indicated problem of the right side for 2 Year(s). Patient History: Menarche at age 14. First Full-Term at age 27. Premenopausal. Patient has history of breast feeding. Hormonal Contraceptives, from age 29 until age 32. Last menstrual period: 01/10/2023 Prior Study Comparison: Patient's first Mammogram. Tissue Density: The breast tissue is extremely dense which could obscure a lesion on mammography. Findings: Analyzed By CAD. No distinct mass or distortion. No suspicious calcifications. Overall Assessment: Negative, BI-RAD 1 Management: Diagnostic Breast Ultrasound of the right breast. . Results were given to the patient verbally at the time of exam. Patient should continue monthly self-breast exams. A clinical breast exam by your physician is recommended on an annual basis. This exam should not preclude additional follow-up of suspicious palpable abnormalities. Note on Sandy scores and lifetime risk: 1. A Sandy score greater than 3% is considered moderate risk. If this is the case, consider specialist referral to assess eligibility for a risk reducing agent. 2. If overall lifetime risk for the development of breast cancer is 20% or higher, the patient may qualify for future screening with alternating mammogram and breast MRI. Electronically signed and approved by: Avila Parker M.D. Radiologis
--- NOTE | 2023-02-09 10:12 | USB ---
Reason for Exam: Clinical finding. Patient History: Menarche at age 14. First Full-Term at age 27. Premenopausal. Patient has history of breast feeding. Hormonal Contraceptives, from age 29 until age 32. Technique: Method: Whole Breast Handheld. Findings: The whole breast of the right breast, the axilla of the right breast and the retroareolar of the right breast were scanned. Electronically signed and approved by: Avila Parker M.D. Radiologis
== END | disposition home or self-care (01) ==
LOC: RADMAMWWP 08:55
PROVIDERS: ATTEND Family Medicine
DX: N64.52 Nipple discharge (principal)
CPT/HCPCS: 77062; 77066

== ENCOUNTER → 2023-06-01 | Outpatient (CLI) | payer OTHER ==
--- NOTE | 2023-06-01 16:01 | US ---
EXAMINATION TYPE: Ultrasound OB <= 14 week fetus DATE OF EXAM: 06/01/2023 11:28 AM COMPARISON: NONE CLINICAL INDICATION: Female, 33 years old with history of O46.91 ANTEPARTUM HEMORRHAGE, UNSPECIFIED, FIRST T; Early Ob, EXAM PERFORMED: OBTA EXAM MEASUREMENTS: GESTATIONAL AGE / DATING Physician Established: Not yet established Dates by LMP: (8 weeks/0 days) EDC: 01/11/2024 Dates by First Scan: No previous this is first scan Dates by Current Scan for: ( 8 weeks/1 days) EDC: 01/10/2024 MATERNAL ANATOMY Uterus: 13.2 x 7.6 x 6.2cm Right Ovary: 2.4 x 1.9 x 1.1cm Left Ovary: 2.0 x 2.6 x 1.4cm Post CDS / Adnexa: wnl Presence of free fluid: no Presence of corpus luteal cyst: not seen Presence of subchorionic bleed: no GESTATION / SURVEY CRL: 1.6cm ( 8 weeks/1 days) MSD: wnl Yolk Sac (normal less than 6mm): 0.2cm Heart Rate: 158 bpm Rhythm: Normal IUP: Viable IUP Date of LMP: 04/06/2023 IMPRESSION: 1. Single live intrauterine with estimated gestational age of 8 weeks 0 days by LMP. [facility]eewe[facility] t ultrasound biometry is concordant at 8 weeks 1 day. 2. Complete survey recommended at 18-20 weeks.
== END | disposition home or self-care (01) ==
LOC: RADUSWWP 11:09
PROVIDERS: ATTEND Obstetrics & Gynecology
DX: O46.91 Antepartum hemorrhage, unspecified, first trimester (principal); Z3A.08 8 weeks gestation of pregnancy
CPT/HCPCS: 76801

== ENCOUNTER → 2023-08-18 | Outpatient (CLI) | payer OTHER ==
--- NOTE | 2023-08-18 12:58 | US ---
EXAMINATION TYPE: US OB anatomy transabd DATE OF EXAM: 08/18/2023 COMPARISON: NONE CLINICAL INDICATION: Female, 33 years old with history of O36.62X0 MATERNAL CARE FOR EXCESS SHENA WTH, SE; Patient denies any signs or symptoms at this time. TECHNIQUE: Transabdominal (TA) EXAM MEASUREMENTS: GESTATIONAL AGE / DATING Physician Established: (19 weeks/1 days) EDC: 01/11/2024 Dates by LMP: 04/06/2023 Dates by First Scan: (19 weeks/2 days) EDC: 01/10/2024 Dates by Current Scan for: (19 weeks/5 days) EDC: 01/07/2024 SURVEY IUP: Single PLACENTA: Anterior PREVIA: No previa АЛЕКСАНДР: 11.4 cm Normal CERVICAL LENGTH (transabdominal: norm > 3.0cm): 3.4 cm BIOMETRY PRESENTATION: Transverse LIE: Oblique BPD: 4.36 cm 19 weeks / 2 days HC: 16.68 cm 19 weeks / 3 days AC: 14.4 cm 19 weeks / 6 days FL: 3.18 cm 20 weeks / 0 days ESTIMATED WEIGHT IN GRAMS: 310 grams ESTIMATED WEIGHT IN LBS/OZ: 0 lbs. 11 oz. WEIGHT PERCENTAGE BASED ON ESTABLISHED DATE: 80 % HC/AC: 1.16 Normal FL/AC: 22% Normal HEART RATE: 150 bpm RHYTHM: Normal ANATOMY SEEN (within normal limits): Cisterna Magna (< 1.1 cm) 0.5 cm Cerebellum (varies with age) 2.17 cm Midline Falx Stomach Diaphragm Kidneys (bilateral) Bladder Transverse Spine Arms (bilateral) ANATOMY SEEN (does not appear within normal limits): Choroid Plexus cysts bilaterally 1- 0.9 x 0.8 x 0.8 cm 2 - 0.8 x 0.6 x 0.8 cm ANATOMY NOT SEEN OR SUBOPTIMALLY VISUALIZED: Nuchal Fold (< 0.6 cm) 0.4 cm Cavus Septi Pellucidi 4 Chamber heart Outflow tracts: LVOT/RVOT Situs Longitudinal Spine (lumbosacral) Lateral ventricle Nose / Lips Legs (bilateral) (fibula not seen) Cord Insert (excessive crowding at the insertion) Three Vessel Cord IMPRESSION: 1. Single live anterior with estimated gestational age of 19 weeks 1 day by LMP. Current ul trasound biometry is concordant at 19 weeks 5 days with appropriate interval growth compared to 2022. 2. Bilateral choroid plexus cysts which may be considered a soft marker for aneuploidy if they persis t to end term. Follow-up can be performed. 3. Multiple structures on the survey could not be adequately visualized. Rescan in one to 2 wemichael aldana.
== END | disposition home or self-care (01) ==
LOC: RADUSWWP 09:47
PROVIDERS: ATTEND Obstetrics & Gynecology
DX: O36.62X0 Maternal care for excessive fetal growth, second trimester, not applicable or unspecified (principal); O99.352 Diseases of the nervous system complicating pregnancy, second trimester; Z3A.19 19 weeks gestation of pregnancy
CPT/HCPCS: 76811

== ENCOUNTER → 2023-10-17 | Outpatient (CLI) | payer OTHER ==
--- NOTE | 2023-10-18 12:42 | US ---
EXAMINATION TYPE: US OB >= 14 wk fetus DATE OF EXAM: 10/17/2023 COMPARISON: None CLINICAL INDICATION: Female, 33 years old with history of G93.0 Cerebral cysts TECHNIQUE: Transabdominal (TA) GESTATIONAL AGE / DATING Physician Established: (27 weeks/5 days) EDC: 01/11/2024 Dates by LMP: (27 weeks/5 days) EDC: 01/11/2024 Dates by First Scan: (8 weeks/0 days) EDC: 01/11/2024 Dates by Current Scan: (28 weeks/6 days) (4 days more growth than expected compared to 08/18/2023) EDC: 01/03/2024 SURVEY IUP: Single PLACENTA: Anterior PREVIA: No Previa АЛЕКСАНДР: 15.09 cm Normal CERVICAL LENGTH (transabdominal: norm > 3.0cm): 4.3 cm BIOMETRY PRESENTATION: Vertex LIE: Longitudinal BPD: 7.29 cm 29 weeks / 2 days HC: 27.00 cm 29 weeks / 4 days AC: 23.45 cm 27 weeks / 6 days FL: 5.40 cm 28 weeks / 5 days ESTIMATED WEIGHT IN GRAMS: 1207 grams ESTIMATED WEIGHT IN LBS/OZ: 2 lbs. 11 oz. WEIGHT PERCENTAGE BASED ON ESTABLISHED DATES: 61% (versus 80%, previously) HC/AC: 1.15cm Normal FL/AC: 23% Normal HEART RATE: 146 bpm RHYTHM: Normal Planning Advisor notes: Posterior Choroid plexus wnl and anterior not well visualized on today's exam. IMPRESSION: 1. Single live intrauterine with estimated gestational age of 27 weeks 5 days [facility]MP. [facility] gestation at 28 weeks 6 days (4 days more growth than expected com pared to 08/18/2023). 2. Previously seen choroid plexus cysts appear to have resolved. 3. Previously missed anatomy from 08/18/2023 is not assessed.
== END | disposition home or self-care (01) ==
LOC: RADUSWWP 15:30
PROVIDERS: ATTEND Obstetrics & Gynecology
DX: Z36.2 Encounter for other antenatal screening follow-up (principal); O99.353 Diseases of the nervous system complicating pregnancy, third trimester; G93.0 Cerebral cysts; Z3A.27 27 weeks gestation of pregnancy
CPT/HCPCS: 76805

== ENCOUNTER → 2023-10-24 | Outpatient (CLI) | payer OTHER ==
--- NOTE | 2023-10-25 14:15 | US ---
EXAMINATION TYPE: US OB Call Back DATE OF EXAM: 10/24/2023 COMPARISON: 08/18/2023 CLINICAL INDICATION: Female, 33 years old with history of Z36.0 FOLLOW UP FROM PREVIOUS; GESTATIONAL AGE / DATING Dates by Initial Survey Scan: (28 weeks/5 days) EDC: 01/11/2024 HEART RATE: 148 bpm RHYTHM: Normal ANATOMY SEEN (second anatomic survey look): Lateral Vent (< 1 cm) Choroid Plexus (bilateral) Cavus Septi Pellucidi Four Chamber Heart Situs Nose / Lips Cord Insert Three Vessel Cord Longitudinal Spine Legs (bilateral) ANATOMY THAT REMAIN SUBOPTIMALLY VISUALIZED: Outflow tracts:? LVOT/RVOT IMPRESSION: 1. The cardiac outflow tracts remain suboptimally visualized. 2. The remaining anatomy appears normal.
== END | disposition home or self-care (01) ==
LOC: RADUSWWP 12:54
PROVIDERS: ATTEND Obstetrics & Gynecology
DX: Z53.9 Procedure and treatment not carried out, unspecified reason (principal)

== ENCOUNTER 2024-01-11 08:57 | Inpatient (IN) | payer OTHER ==
[2024-01-11] MEDS ORDERED: TRANEXAMIC 1,000 MG/100ML-NACL 1,000 MG in EMPTY BAG 1 BAG IV PRN (09:58)
[2024-01-11] MEDS ORDERED: miSOPROStoL 200 MCG TAB PO PRN (09:58)
[2024-01-11] MEDS ORDERED: OXYTOCIN 10 UNIT/ML 1 ML VIAL IM PRN (09:58)
[2024-01-11] MEDS ORDERED: LIDOCAINE 0.5% (PF) 5 MG/ML (50 ML SDV) SQ PRN (09:58)
[2024-01-11] MEDS ORDERED: TERBUTALINE 1 MG/ML VIAL SQ PRN (09:58)
[2024-01-11] MEDS ORDERED: METHYLERGONOVINE 0.2 MG/ML 1 ML AMP IM PRN (09:58)
[2024-01-11] MEDS ORDERED: CARBOPROST TROMETHAMINE 250 MCG/ML 1 ML AMP IM PRN (09:58)
[2024-01-11] MEDS: LACTATED RINGERS 1,000 ML IV SCH (10:13)
[2024-01-11 10:20] LABS: Basophils % (A) 0 %; Eosinophils # (A) 0.1 k/uL (0-0.7); Eosinophils % (A) 2 %; HCT 37.1 % (34.0-46.0); HGB 12.3 gm/dL (11.4-16.0); Lymphocytes # (A) 1.2 k/uL (1.0-4.8); Lymphocytes % (A) 18 %; MCH 29.3 pg (25.0-35.0); MCHC 33.1 g/dL (31.0-37.0); MCV 88.4 fL (80.0-100.0); Monocytes # (A) 0.3 k/uL (0-1.0); Monocytes % (A) 5 %; Neutrophils # (A) 4.8 k/uL (1.3-7.7); Neutrophils % (A) 74 %; Platelet Count 116 k/uL (150-450); RDW 14.1 % (11.5-15.5); WBC 6.5 k/uL (3.8-10.6)
[2024-01-11] MEDS ORDERED: SODIUM CHLORIDE 0.9% 250 ML BAG ONE (10:45)
[2024-01-11] MEDS ORDERED: fentaNYL (PF) 50 MCG/ML 5 ML AMP ONE (10:45)
[2024-01-11] MEDS ORDERED: ROPIVACAINE 5 MG/ML 30 ML VIAL ONE (10:45)
[2024-01-11] MEDS: OXYTOCIN 30 UNITS/500 ML NS 30 UNIT in SALINE 1 500ML.BAG IV SCH (12:35)
--- NOTE | 2024-01-11 14:05 | P.HPOB ---
History of Present Illness H&P Date: 01/11/24 Chief Complaint: labor 33 year old presents at 40 weeks in labor. She is melia irregularly. heart tones 135 with moderate variability and reactive. Her cervix is 5-6/80/-2. Review of Systems All systems: negative Constitutional: Denies chills, Denies fever Eyes: denies blurred vision, denies pain Ears, nose, mouth and throat: Denies headache, Denies sore throat Cardiovascular: Denies chest pain, Denies shortness of breath Respiratory: Denies cough Gastrointestinal: Denies abdominal pain, Denies diarrhea, Denies nausea, Denies vomiting Genitourinary: Denies dysuria, Denies hematuria Musculoskeletal: Denies myalgias Integumentary: Denies pruritus, Denies rash Neurological: Denies numbness, Denies weakness Psychiatric: Denies anxiety, Denies depression Endocrine: Denies fatigue, Denies weight change Past Medical History Past Medical History: No Reported History Additional Past Medical History / Comment(s): Obstetric history: First was a section for failure to progress and decelerations in the heart rate. O+, abs neg, Rub Imm, RPR NR, Hep B neg, HIV NR, GBS neg. normal anatomy US. normal 1hr GTT. Her second 2 deliveries were normal vaginal deliveries. We have discussed the risks and benefits of vaginal after and she and her expressed understanding. History of Any Multi-Drug Resistant Organisms: None Reported Past Surgical History: Section Past Anesthesia/Blood Transfusion Reactions: No Reported Reaction Smoking Status: Never smoker - Past Family History Father Family Medical History: No Reported History Medications and Allergies Home Medications Medication Instructions Recorded Confirmed Type Vit,Calc78/Iron/Folic 1 tab PO DAILY 09/18/16 01/11/24 History [Pretab 29 mg-1 mg Tablet] Allergies Allergy/AdvReac Type Severity Reaction Status Date / Time No Known Allergies Allergy Verified 01/11/24 09:17 Exam Osteopathic Statement: *. No significant issues noted on an osteopathic structural exam other than those noted in the History and Physical/Consult. Vital Signs Temp Pulse Resp BP Pulse Ox 01/11/24 10:00 97.7 F 64 16 114/72 99 Intake and Output 01/10/24 01/11/24 01/11/24 22:59 06:59 14:59 Other: Weight 82.1 kg Heart: Regular rate and rhythm Lungs: Clear to auscultation bilaterally Abdomen: Soft, nontender Extremities: Negative Homans sign Results Result Diagrams: 01/11/24 09:58 Abnormal Lab Results - Last 24 Hours (Table) 01/11/24 Range/Units 09:58 Plt Count 116 L (150-450) k/uL Assessment and Plan (1) Previous section Current Visit: No Status: Chronic Code(s): Z98.891 - HISTORY OF UTERINE SCAR FROM PREVIOUS SURGERY SNOMED Code(s): 031015784 (2) Normal labor Current Visit: No Status: Acute Code(s): O80 - ENCOUNTER FOR FULL-TERM UNCOMPLICATED DELIVERY; Z37.9 - OUTCOME OF DELIVERY, UNSPECIFIED SNOMED Code(s): 01767353 Plan: 1. admit to [facility] 2. expectant management with pitocin augmentation if necessary 3. anticipate normal vaginal delivery
[2024-01-11] MEDS ORDERED: HYDROCORTISONE 2.5% RECTAL CREAM 30 GM TUBE RECTAL PRN (16:32)
[2024-01-11] MEDS ORDERED: diphenhydrAMINE 50 MG/ML 1 ML VIAL IVP PRN ×2 (16:32)
[2024-01-11] MEDS ORDERED: ZOLPIDEM 5 MG TAB PO PRN (16:32)
[2024-01-11] MEDS ORDERED: diphenhydrAMINE 25 MG CAP PO PRN (16:32)
[2024-01-11] MEDS ORDERED: SIMETHICONE 80 MG CHEWABLE PO PRN (16:32)
[2024-01-11] MEDS ORDERED: LANOLIN CREAM 1 GM TUBE TOPICAL PRN (16:32)
[2024-01-11] MEDS ORDERED: diphenhydrAMINE 50 MG CAP PO PRN (16:32)
[2024-01-11] MEDS ORDERED: BENZOCAINE/MENTHOL SPRAY 1 GM/SPRAY AEROSOL TOPICAL PRN (16:32)
[2024-01-11] MEDS: IBUPROFEN 600 MG TAB PO PRN (22:00)
[2024-01-11] MEDS: SENNOSIDES-DOCUSATE SODIUM 1 EACH TAB PO SCH (22:00)
[2024-01-12] MEDS: ACETAMINOPHEN TAB 325 MG TAB PO PRN (02:52)
[2024-01-12 07:46] LABS: Basophils % (A) 0 %; Eosinophils # (A) 0.2 k/uL (0-0.7); Eosinophils % (A) 3 %; HGB 11.9 gm/dL (11.4-16.0); Lymphocytes # (A) 1.4 k/uL (1.0-4.8); Lymphocytes % (A) 15 %; MCH 29.4 pg (25.0-35.0); MCV 89.1 fL (80.0-100.0); Monocytes # (A) 0.4 k/uL (0-1.0); Monocytes % (A) 4 %; Neutrophils # (A) 7.4 k/uL (1.3-7.7); Neutrophils % (A) 78 %; RBC 4.03 m/uL (3.80-5.40); RDW 14.2 % (11.5-15.5); WBC 9.5 k/uL (3.8-10.6)
[2024-01-12 08:47] LABS: Platelet Count 107 k/uL (150-450)
[2024-01-12 08:48] LABS: Large Platelets Present
[2024-01-12 16:57] VITALS: BP 109/69; PULSE 58; RESP 16; TEMP 98.4
--- NOTE | 2024-02-10 12:13 | P.PROBDLV ---
Vaginal Delivery Note - . Vaginal Delivery Note: 33 year old presents at 40 weeks in labor. She is melia irregularly. heart tones 135 with moderate variability and reactive. Her cervix is 5-6/80/-2. Amniotomy performed 11:27 AM and clear fluid noted. Patient did get an epidural and was completely dilated by 1525. She pushed, delivered a viable infant over intact perineum at 1531. Head delivered OA, anterior shoulder delivered gentle downward guidance of the posterior shoulder and rest of body. Nose and mouth bulb suctioned, cord clamped, placed on mother's abdomen. Apgars 9, 9, weight pending. Placenta delivered spontaneously, intact with three-vessel cord at 1534. Vagina, cervix, perineum inspected. No lacerations noted. Estimated blood loss 200 mL. Mother and baby in stable condition.
--- NOTE | 2024-02-10 12:14 | P.DS ---
Providers Date of admission: 01/11/24 09:23 Expected date of discharge: 01/12/24 Attending physician: Ledy Bal Primary care physician: Stated None - Discharge Diagnosis(es) (1) Previous section Status: Chronic (2) Normal labor Status: Resolved (3) Vaginal after Status: Acute Hospital Course: Patient presented in labor. She underwent normal vaginal delivery. course was uneventful. Her baby was transferred to another hospital and patient would like to be discharged home. Patient is discharged home to follow-up with me in 6 weeks. Patient Condition at Discharge: Stable Plan - Discharge Summary New Discharge Prescriptions: No Action Vit,Calc78/Iron/Folic [Pretab 29 mg-1 mg Tablet] 1 tab PO DAILY Discharge Medication List Vit,Calc78/Iron/Folic [Pretab 29 mg-1 mg Tablet] 1 tab PO DAILY 09/18/16 [History] Follow up Appointment(s)/Referral(s): Ledy aBl DO [Doctor of Osteopathic Medicine] - 02/26/24 1:45 pm Discharge Disposition: HOME SELF-CARE
== END 2024-01-12 17:47 | disposition home or self-care (01) | DRG 807 ==
LOC: FBPOP 08:57 → 4FBP 09:23
PROVIDERS: ADMIT Obstetrics & Gynecology; ATTEND Obstetrics & Gynecology
PROC: 10E0XZZ Delivery of Products of Conception, External Approach (ICD-10-PCS; principal; 2024-01-11)
PROC: 10907ZC Drainage of Amniotic Fluid, Therapeutic from Products of Conception, Via Natural or Artificial Opening (ICD-10-PCS; 2024-01-11)
DX: O34.211 Maternal care for low transverse scar from previous cesarean delivery (principal); Z37.0 Single live birth; Z3A.40 40 weeks gestation of pregnancy
CPT/HCPCS: 85025; 86850; 86900; 86901; 99213

== ENCOUNTER 2025-03-16 14:29 | Emergency (ER) | payer OTHER ==
--- NOTE | 2025-03-16 14:55 | ED ---
General Adult HPI - General Chief complaint: Extremity Problem,Nontraumatic Stated complaint: Right knee extremity, difficulty Time Seen by Provider: 03/16/25 14:41 Source: patient, RN notes reviewed Mode of arrival: ambulatory Limitations: no limitations - History of Present Illness Initial comments: 35-year-old female presenting to the emergency room with complaints of right knee nontraumatic pain over the past 2 months. Patient states that she will occasionally experience pain while walking and going up and down stairs and after prolonged sitting. She denies any known trauma or injury to the area states that 1 morning she woke up but she experiences intermittent pain of the knee. Denies fevers, erythema, swelling of the joint. Denies calf pain. - Related Data Home Medications Medication Instructions Recorded Confirmed Vit,Calc78/Iron/Folic 1 tab PO DAILY 09/18/16 01/11/24 [Pretab 29 mg-1 mg Tablet] Allergies Allergy/AdvReac Type Severity Reaction Status Date / Time No Known Allergies Allergy Verified 03/16/25 14:38 Review of Systems ROS Statement: Those systems with pertinent positive or pertinent negative responses have been documented in the HPI. ROS Other: All systems not noted in ROS Statement are negative. Past Medical History Past Medical History: No Reported History Additional Past Medical History / Comment(s): Obstetric history: First was a section for failure to progress and decelerations in the heart rate. O+, abs neg, Rub Imm, RPR NR, Hep B neg, HIV NR, GBS neg. normal anatomy US. normal 1hr GTT. Her second 2 deliveries were normal vaginal deliveries. We have discussed the risks and benefits of vaginal after and she and her expressed understanding. History of Any Multi-Drug Resistant Organisms: None Reported Past Surgical History: Section Past Anesthesia/Blood Transfusion Reactions: No Reported Reaction Past Psychological History: No Psychological Hx Reported Smoking Status: Never smoker Past Alcohol Use History: None Reported Past Drug Use History: None Reported - Past Family History Father Family Medical History: No Reported History General Exam Limitations: no limitations Neck exam: Present: normal inspection. Absent: tenderness, meningismus, lymphadenopathy Respiratory exam: Present: normal lung sounds bilaterally. Absent: respiratory distress, wheezes, rales, rhonchi, stridor Cardiovascular Exam: Present: regular rate, normal rhythm, normal heart sounds. Absent: systolic murmur, diastolic murmur, rubs, gallop, clicks GI/Abdominal exam: Present: soft, normal bowel sounds. Absent: distended, tenderness, guarding, rebound, rigid Right Knee exam: Present: normal inspection, full ROM. Absent: tenderness, swelling, abrasion, laceration, ecchymosis, deformity, crepitus, dislocation, erythema, effusion, pain w/ pronation/supination, posterior draw sign, pain/laxity with valgus, pain/laxity with varus Back exam: Present: normal inspection Course Vital Signs 03/16/25 03/16/25 14:38 16:04 Temperature 98.2 F 97.9 F Pulse Rate 67 76 Respiratory 18 20 Rate Blood Pressure 98/63 106/74 O2 Sat by Pulse 99 99 Oximetry Medical Decision Making - Medical Decision Making Was pt. sent in by a medical professional or institution (, PA, [employer]TAIN [employer], urgent care, hospital, or half-way...) When possible be specific @ -No Did you speak to anyone other than the patient for history (EMS, parent, family, police, friend...)? What history was obtained from this source @ -No Did you review nursing and triage notes (agree or disagree)? Why? @ -I reviewed and agree with nursing and triage notes Were old charts reviewed (outside hosp., previous admission, EMS record, old EKG, old radiological studies, urgent care reports/EKG's, half-way records)? Report findings @ -No old charts were reviewed Differential Diagnosis (chest pain, altered mental status, abdominal pain women, abdominal pain men, vaginal bleeding, weakness, fever, dyspnea, syncope, headache, dizziness, GI bleed, back pain, seizure, CVA, palpatations, mental health, musculoskeletal)? @ -Differential Musculoskeletal Muscular strain, contusion, ligament sprain, fracture, arthritis, septic arthritis, bursitis, cellulitis, muscle spasm, nerve compression, DVT, arterial occlusion, herpes zoster, electrolyte abnormality, tumor.... This is not meant to be in all inclusive list EKG interpreted by me (3pts min.). @ -None X-rays interpreted by me (1pt min.). @ -X-ray imaging of the right knee reveals no acute osseous pathology CT interpreted by me (1pt min.). @ -None done U/S interpreted by me (1pt. min.). @ -None done What testing was considered but not performed or refused? (CT, X-rays, U/S, labs)? Why? @ -None What meds were considered but not given or refused? Why? @ -None Did you discuss the management of the patient with other professionals (professionals i.e. , PA, [employer], lab, RT, psych nurse, hospital social worker, tool grinder operator external, teacher, military source operations officer, rn case manager)? Give summary @ -No Was smoking cessation discussed for >3mins.? @ -No Was critical care preformed (if so, how long)? @ -No Were there social determinants of health that impacted care today? How? (Homelessness, low income, unemployed, alcoholism, drug addiction, transportation, low edu. Level, literacy, decrease access to med. care, custodial, rehab)? @ -No Was there de-escalation of care discussed even if they declined (Discuss DNR or withdrawal of care, Hospice)? DNR status @ -No What co-morbidities impacted this encounter? (DM, HTN, Smoking, COPD, CAD, Cancer, CVA, ARF, Chemo, Hep., AIDS, mental health diagnosis, sleep apnea, morbid obesity)? @ -None Was patient admitted / discharged? Hospital course, mention meds given and route, prescriptions, significant lab abnormalities, going to OR and other pertinent info. @ -Discharge. 35-year-old female presenting to emergency room with complaints of nontraumatic right knee pain. Physical examination is unremarkable. Full range of motion is intact. There is no erythema, joint effusion, laceration. She is offered pain medication was declined. X-ray imaging is unremarkable. She is provided with orthopedic follow-up and is stable for discharge. Case discussed with my attending Dr. Bynum. Undiagnosed new problem with uncertain prognosis? @ -No Drug Therapy requiring intensive monitoring for toxicity (Heparin, Nitro, Insulin, Cardizem)? @ -No Were any procedures done? @ -No Diagnosis/symptom? @ -Nontraumatic right knee pain Acute, or Chronic, or Acute on Chronic? @ -Acute Uncomplicated (without systemic symptoms) or Complicated (systemic symptoms)? @ -Uncomplicated Side effects of treatment? @ -No Exacerbation, Progression, or Severe Exacerbation? @ -No Poses a threat to life or bodily function? How? (Chest pain, [place], [place], pneumonia, PE, COPD, DKA, ARF, appy, cholecystitis, CVA, Diverticulitis, Homicidal, Suicidal, threat to staff... and all critical care pts) @ -No Disposition Clinical Impression: Knee pain, left Disposition: HOME SELF-CARE Condition: Good Instructions (If sedation given, give patient instructions): Knee Pain (ED) Additional Instructions: Please return to the Emergency Department if symptoms worsen or any other concerns. Is patient prescribed a controlled substance at d/c from ED?: No Referrals: Gregory Parish DO [Primary Care Provider] - 1-2 days Ronnie Echeverria MD [STAFF PHYSICIAN] - 1-2 days Time of Disposition: 15:35
--- NOTE | 2025-03-16 15:13 | XR ---
EXAMINATION TYPE: XR knee complete LT DATE OF EXAM: 03/16/2025 3:09 PM COMPARISON: None. CLINICAL INDICATION: Female, 35 years old with history of pain; PHH, pain TECHNIQUE: XR knee complete LT views submitted.. FINDINGS: No evidence of any acute osseous pathology, soft tissue swelling, or significant joint ef fusion is noted. IMPRESSION: 1. No acute osseous pathology. [facility], , 03/16/2025 3:11 PM
[2025-03-16 16:05] VITALS: BP 106/74; PULSE 76; RESP 20; TEMP 97.9
== END 2025-03-16 16:13 | disposition home or self-care (01) ==
LOC: EC 14:29
DX: M25.562 Pain in left knee (principal)
CPT/HCPCS: 99283